=== PATIENT | male | born 1940 | race Caucasian/White ===

== ENCOUNTER → 2016-06-25 | Outpatient (CLI) | payer MEDICARE, BC ==
[2015-05-08 12:27] VITALS: BP 136/72
[~2016-06-25] MED LIST: AMLO10TA2 PO; BUSP10TA PO; DOXA4TAB3 PO; FLUT16SP NS; HYDR-2868 PO; IOHEXOL 240 MG/ML 50ML VIAL. PO ONE; IOHEXOL 300 MG/ML 75 ML VIAL IV ONE; LANS30CA PO; LORA0.5T PO; LORA10TA3 PO; LOSA50TA2 PO; MULT1TAB52 PO; OLME40TA PO; SIMV20TA3 PO; calcium PO
[2016-06-25 09:44] LABS: GFR 72.5
--- NOTE | 2016-06-25 12:00 | RAD ---
Indication prostate and renal malignancy. The history of surgical resection of the next hepatic mass off the inferior pole of the left kidney has been provided. Initially noncontrast images through the kidneys were performed. This was followed by portal venous phase, slightly delayed and 10 minute delayed images. The abdomen and pelvis were imaged on the slightly delayed images. On the other imaging sets only the abdomen was evaluated. In addition to the IV contrast oral contrast was administered. Note is made of a prior study 12/05/2014. The lung bases are unremarkable. There are some degenerative changes in the visualized lower thoracic and lumbar spine. This is most pronounced associated with the inferior endplate of L4 where there is some cystic degeneration. No additional bony finding is seen. Benign masses are noted associated with the liver similar to the previous exam. The gallbladder appears grossly normal and the spleen appears unremarkable. No pancreatic abnormality is seen. There is a cyst off the right kidney measuring 7 cm in greatest dimension similar to the previous exam. There occasional small cysts off the left kidney also similar. Some scarring involving the caudal aspect of the left kidney is noted. There is no evidence of tumor recurrence. The pancreas appears unremarkable. There is no significant adenopathy seen in the abdomen. In the pelvis a right hip prosthesis is noted. Acute finding is not seen. Postoperative changes are noted in the prostate bed. Evidence of metastatic disease is not seen IMPRESSION: No acute findings seen in the abdomen or pelvis. Bilateral renal cysts. No evidence of tumor recurrence or metastatic disease PQRS Compliance Statement: One or more of the following individualized dose reduction techniques were utilized for this examination: 1. Automated exposure control 2. Adjustment of the mA and/or kV according to patient size 3. Use of iterative reconstruction technique
--- NOTE | 2016-06-25 15:02 | RAD ---
Radionuclide bone scan, 06/25/2016: History: Prostate cancer and renal cancer Whole body imaging was performed following IV injection of 22 mCi of technetium 99m MDP. No previous bone scan is available at this time for comparison purposes. The following findings are delineated: 1. There is increased activity at both shoulders, sternoclavicular joints, knees, feet, hands and wrists compatible with arthritis. 2. Minimally increased activity in the lower lumbar spine is probably due to arthritis as noted on the recent CT study. 3. A right hip prosthesis is noted. 4. Activity of the radionuclide about the skeleton the major joints is otherwise unremarkable. 5. Normal activity is identified in both kidneys and the bladder. IMPRESSION: No bone scan evidence of osseous metastatic disease.
== END | disposition home or self-care (01) ==
LOC: NM 11:40
PROVIDERS: ATTEND Urology
DX: C61 Malignant neoplasm of prostate (principal); N28.1 Cyst of kidney, acquired
CPT/HCPCS: 36415; 74178; 78306; 82565; 84520; 96374; A9503; Q9967

== ENCOUNTER → 2017-05-20 | Outpatient (CLI) | payer MEDICARE, BC | END | disposition home or self-care (01) | LOC: ECHO 08:50 | DX: I08.1 Rheumatic disorders of both mitral and tricuspid valves (principal) | CPT/HCPCS: 93306 ==

== ENCOUNTER → 2018-04-20 | Outpatient (CLI) | payer MEDICARE, BC ==
[2016-10-21 16:28] VITALS: BP 151/68
[~2018-04-20] MED LIST changes: -AMLO10TA2 PO; +AMLO10TA8 PO; +AZEL23SP NS; +HYDR-2145 PO; -IOHEXOL 240 MG/ML 50ML VIAL. PO ONE; -IOHEXOL 300 MG/ML 75 ML VIAL IV ONE; +LOSA-73 PO; -LOSA50TA2 PO; -OLME40TA PO; +OLME40TA12 PO; +TRAM50TA PO
--- NOTE | 2018-04-20 16:07 | CARD ---
MR#: [id number] Date of Study: 04/20/2018 Ordering Physician: MELISSA REYES, Referring Physician: MELISSA REYES, Tech: Susanna Sevilla ESA APPROVED REPORT EXAM: Two-dimensional and M-mode echocardiogram with Doppler and color Doppler. Other Information Quality : AverageHR: 50bpm Rhythm : Bradycardia INDICATION Mitral Valve Disease 2D DIMENSIONS RVDd3.1 (2.9-3.5cm)Left Atrium(2D)5.1 (1.6-4.0cm) IVSd1.4 (0.7-1.1cm)Aortic Root(2D)2.9 (2.0-3.7cm) LVDd5.5 (3.9-5.9cm)LVOT Diameter2.2 (1.8-2.4cm) PWd1.0 (0.7-1.1cm)LVDs3.1 (2.5-4.0cm) FS (%) 43.4 %SV107.7 ml LVEF(%)74.1 (>50%) M-Mode DIMENSIONS Left Atrium(MM)5.09 (2.5-4.0cm)Aortic Root2.88 (2.2-3.7cm) Aortic Valve AoV Peak Prabhjot.232.2cm/sAoV VTI56.6cm AO Peak GR.21.6mmHgLVOT Peak Prabhjot.117.0cm/s AO Mean GR.13mmHgAVA (VMAX)1.85cm2 ROLY (VTI)1.90cm2 Mitral Valve MV E Juqtepck000.5cm/sMV DECEL HRTT869jk MV A Cdbprlsy99.9cm/sE/A Ratio1.4 MV A Yspzbkkd423iv Pulmonary Valve PV Peak Ivtyvuqr464.0cm/s Tricuspid Valve TR P. Uspkjcbx323ml/sRAP WYXOWVSY0juGh TR Peak Gr.45pqJqLIWC91esLg LEFT VENTRICLE The left ventricle is normal size. Proximal septal thickening is noted. The left ventricular systolic function is normal. The Ejection Fraction is 65%. There is normal LV segmental wall motion. Transmit ral Doppler flow pattern is Grade II-pseudonormal filling dynamics. RIGHT VENTRICLE The right ventricle is normal size. There is normal right ventricular wall thickness. The right ventr icular systolic function is normal. ATRIA The left atrium is moderately dilated. The right atrium is mildly dilated. The interatrial septum is intact with no evidence for an atrial septal defect or patent foramen ovale as noted on 2-D or Dopple r imaging. AORTIC VALVE The aortic valve is mildly calcified. The aortic valve is trileaflet. Doppler and Color Flow revealed no significant aortic regurgitation. There is no significant aortic valvular stenosis. MITRAL VALVE The mitral valve is thickened but opens well. There is no evidence of mitral valve prolapse. There is no mitral valve stenosis. Doppler and Color-flow revealed trace mitral regurgitation. TRICUSPID VALVE The tricuspid valve is normal in structure and function. Doppler and Color Flow revealed trace to mil d tricuspid regurgitation. There is mild pulmonary hypertension. The PA pressure was estimated at 38 mmHg. There is no tricuspid valve prolapse or vegetation. There is no tricuspid valve stenosis. PULMONIC VALVE The pulmonary valve is normal in structure and function. Doppler and Color Flow revealed trace pulmon ic valvular regurgitation. There is no pulmonic valvular stenosis. GREAT VESSELS The aortic root is normal in size. The ascending aorta is normal in size. The IVC is normal in size a nd collapses >50% with inspiration. PERICARDIAL EFFUSION There is no evidence of significant pericardial effusion. Critical Notification Critical Value: No <Conclusion> The left ventricular systolic function is normal. The Ejection Fraction is 65%. There is normal LV segmental wall motion. Transmitral Doppler flow pattern is Grade II-pseudonormal filling dynamics. The left atrium is moderately dilated. Trace mitral regurgitation. Trace to mild tricuspid regurgitation. The PA pressure was estimated at 38 mmHg. There is no evidence of significant pericardial effusion. Signed by : Renaldo De Leon, Electronically Approved : 04/20/2018 16:06:42
== END | disposition home or self-care (01) ==
LOC: ECHO 14:02
PROVIDERS: ATTEND Internal Medicine Cardiovascular Disease
DX: I25.10 Atherosclerotic heart disease of native coronary artery without angina pectoris (principal); I27.20 Pulmonary hypertension, unspecified; I42.2 Other hypertrophic cardiomyopathy
CPT/HCPCS: 93306

== ENCOUNTER → 2018-05-18 | Outpatient (CLI) | payer MEDICARE, BC ==
[2016-10-21 16:28] VITALS: BP 151/68
--- NOTE | 2018-05-18 13:07 | RAD ---
MR#: [id number] Date of Study: 05/18/2018 Ordering Physician: MELISSA REYES, Referring Physician: NICOLE ESCOBAR Tech: RT Mariana (R) (N) APPROVED REPORT Test Type: Exercise Stress Nurse/Tech: Doris Saavedra RN Test Indications: dyspnea Cardiac History: HTN Medications: See EMR Medical History: See EMR Resting ECG: Sinus bradycardia Resting Heart Rate: 44 bpm Resting Blood Pressure: 182/69mmHg Pretest Chest Pain: No chest pain Nurse/Tech Notes S1 S2. Lung sounds clear. Consent: The procedure was explained to the patient in lay terms. Informed consent was witnessed. Tang eout was entered into [employer]. History and Stress Test performed by MILDRED Cardenas Stress Symptoms Dyspnea POST EXERCISE Reason for Termination: Reached target heart rate Target HR: 119 Max HR: 120 bpm 101% of Maximum Predicted HR: 120 bpm Exercise duration: 8:05 min:sec, 3 Stage Exercise capacity: 10.0METs Max Blood Pressure: 204/61mmHg Blood Pressure response to exercise: Normal blood pressure response during stress. Heart Rate response to exercise: normal Chest Pain: No. Arrhythmia: Yes. Stage 1 bigeminy PVC's noted; trigeminy PVC's noted in Stage 3 ST Change: No. INTERPRETATION Stress EKG Conclusion: Baseline EKG showed sinus rhythm. Non diagnostic changes at peak stress. PVC' s and bigeminy without any other arrhythmias. Imaging Protocol IMAGE PROTOCOL: Rest Tc-99m/stress Tc-99m 1 day Rest: Stress: Viability: Radiopharm.Tc99m HigxaasatHv80a Sestamibi Dose10.2mCi 33.1mCi Duration 13min. 13min. Img Date 05/18/2018 05/18/2018 Inj-Img Rnrp88tbc. 60min. Rest Admin Site:IV - Right AntecubitalAdministrator:RT Mariana (R)(N) Stress Admin Site: IV - Right AntecubitalAdministrator: MILDRED Cardenas STRESS DATA End Diast. Vol.178.0mlLVEDV index BSA88.0ml End Syst. Vol.61.0mlLVESV index BSA30.0ml Myocardial Byly844.0gEject. Xvjylaja19.0% Stress Scores Regional WT0.00Summed WT0.00 Regional WM0.00Summed WM0.00 Study quality was good. Left Ventricular size was Normal at Rest and Stress. Lung uptake was . Left Ventricular ejection fraction is 66%. The rest and stress images show normal perfusion, normal contraction and thickening. LV Perf. Quant 17 Seg. SSS1.00 17 Seg. SRS2.00 17 Seg. SDS0.00 Stress Defect Extent (% LAD)2.50Rest Defect Extent (% LAD)16.30Rev. Defect Extent (% LAD)0.00 Stress Defect Extent (% LCX) 0.00Rest Defect Extent (% LCX)0.00Rev. Defect Extent (% LCX)0.00 Stress Defect Extent (% RCA)0.00Rest Defect Extent (% RCA)0.00Rev. Defect Extent (% RCA)0.00 Stress Defect Extent (% IRMA)0.90Rest Defect Extent (% IRMA)8.70Rev. Defect Extent (% IRMA)0.00 Conclusion 1. Treadmill exercise cardioisotope stress test did not show any evidence of ischemia or infarct. 2. Normal left ventricular systolic function with ejection fraction calculated at 66%. 3. Low risk for cardiac events. Signed by : Renaldo De Leno, Electronically Approved : 05/18/2018 13:06:51
== END | disposition home or self-care (01) ==
LOC: NM 08:51
PROVIDERS: ATTEND Internal Medicine Cardiovascular Disease
DX: R00.1 Bradycardia, unspecified (principal); I10 Essential (primary) hypertension
CPT/HCPCS: 78452; 93017; 96374; 96376; A9500

== ENCOUNTER → 2018-11-10 | Outpatient (CLI) | payer MEDICARE, BC ==
[2016-10-21 16:28] VITALS: BP 151/68
--- NOTE | 2018-11-11 12:55 | RAD ---
CT scan of the chest without contrast 11/10/2018 CLINICAL HISTORY: History of shortness of breath. Palpitations. TECHNIQUE: Unenhanced, contiguous, 5 mm axial sections were obtained through the chest and upper abdomen. One or more of the following individualized dose reduction techniques were utilized for this study: 1. Automated exposure control. 2. Adjustment of the mA and/or kV according to patient size. 3. Use of iterative reconstruction technique. FINDINGS: Comparison is made to patient's chest radiograph dated 10/20/2016. Low-attenuation lesions are seen involving the thyroid gland, left greater than right which measure 3 mm to 1.7 cm in size. These may represent colloid cysts. Atherosclerotic calcification of the thoracic aorta and its branches is noted. The thoracic aorta is tortuous but tapers normally. Scattered coronary artery calcifications are seen. The heart is mildly enlarged. Enlarged mediastinal lymph nodes are seen which measure 1 to 2 cm in size. Minimal dependent subsegmental atelectasis is seen involving both lungs. No area of consolidation is seen. No pneumothorax or pleural effusion is noted. No area of honeycombing or bronchiectasis is seen. A 9 mm calcified granuloma is seen involving the right lower lobe. Images through the upper abdomen demonstrate a 2.3 cm lipoma associated with the right hemidiaphragm/dome of the liver. A 3.5 cm rounded low-attenuation lesion is seen involving the right lower liver which likely represents a hepatic cyst. Atherosclerotic calcification of the abdominal aorta and its branches is noted. Minimal S-shaped curvature of the thoracolumbar spine is seen. Degenerative changes are seen involving the thoracic spine. A 2.7 cm hemangioma seen involving the T7 vertebral body. IMPRESSION: 1. Mediastinal lymphadenopathy of uncertain etiology. 2. No acute abnormality is seen. Electronically signed by: Tray Cash MD (11/11/2018 12:53 PM) [facility]
== END | disposition home or self-care (01) ==
LOC: CT 10:52
PROVIDERS: ATTEND Internal Medicine Critical Care Medicine
DX: J84.9 Interstitial pulmonary disease, unspecified (principal); R59.0 Localized enlarged lymph nodes; D17.5 Benign lipomatous neoplasm of intra-abdominal organs; I70.0 Atherosclerosis of aorta; D18.09 Hemangioma of other sites
CPT/HCPCS: 71250

== ENCOUNTER → 2019-01-23 | Outpatient (CLI) | payer MEDICARE, BC ==
[2016-10-21 16:28] VITALS: BP 151/68
[~2019-01-23] MED LIST changes: +SIMV20TA18 PO; -SIMV20TA3 PO
[2019-01-23 14:06] LABS: CALCIUM 8.8 mg/dL (8.5-10.1); CREATININE 1.3 mg/dL (0.7-1.3); GFR 53.1; POTASSIUM 4.1 mmol/L (3.5-5.1)
--- NOTE | 2019-01-23 14:14 | EKG ---
[facility] [address] [place] [address] Test Date: 2019-01-23 Test Time: 14:10:09 Pat Name: RANDAL SMALLWOOD Department: Room: Gender: M Top Screw: M[place] : 1940 Requested By: STAFF NON Order Number: [id number] Reading MD: Renaldo De Leon Measurements Intervals [place] Rate: 48 P: 45 FL: 222 QRS: 13 QRSD: 106 T: 42 QT: 470 QTc: 420 Interpretive Statements SINUS BRADYCARDIA PROLONGED FL INTERVAL ABNORMAL ECG Electronically Signed On 01-29-2019 15:07:23 DEVELOPER RELATIONS MANAGER by Renaldo De Leon
== END | disposition home or self-care (01) ==
LOC: LAB 13:29
DX: Z01.812 Encounter for preprocedural laboratory examination (principal); Z01.810 Encounter for preprocedural cardiovascular examination; R94.31 Abnormal electrocardiogram [ECG] [EKG]; I10 Essential (primary) hypertension
CPT/HCPCS: 36415; 80048; 93005

== ENCOUNTER → 2019-01-29 | Outpatient (CLI) | payer MEDICARE, BC ==
[2016-10-21 16:28] VITALS: BP 151/68
[~2019-01-29] MED LIST changes: +CONTRAST GIVEN. MC PRN; +IOHEXOL 300 MG/ML 100ML VIAL. IV ONE
--- NOTE | 2019-01-29 11:05 | RAD ---
CT CHEST W/CONTRAST Indication: Adenopathy Technique: Postcontrast CT imaging was performed of the chest, multiplanar reconstruction images submitted. One or more of the following individualized dose reduction techniques were utilized for this examination: 1. Automated exposure control 2. Adjustment of the mA and/or kV according to patient size 3. Use of iterative reconstruction technique. Comparison: November 10, 2018 Findings: There is persistent nonspecific mediastinal lymphadenopathy. A couple of right paratracheal nodes are slightly larger. For example node image 20 series 2 measures about 1.3 cm short axis dimension versus previously 1.2 cm. Right paratracheal node image 16 series 2 measures about 1.3 cm short axis dimension versus previously about 1.1 cm in similar measurement planes. No new nodes are identified. Thoracic aortic caliber is within normal limits, scattered plaque. There is coronary calcification. There is again very minimal pericardial fluid. There is no pleural fluid or pneumothorax. No new suspicious lung mass is identified. There is emphysema. There is again fat-containing right Bochdalek hernia. Kidneys are not fully evaluated, 2 foci of hypodensity of the left kidney with density characteristics of cysts, largest more inferiorly up to 2.6 cm. Lytic focus T7 vertebral body with associated trabecular thickening is most likely a hemangioma. There is again lipoma near the right dome of the liver. There is also hypodense lesion of the right lobe of liver with density characteristics of a cyst, up to about 3.8 cm in size. IMPRESSION: 1. There is persistent nonspecific mediastinal lymphadenopathy, a couple of right paratracheal nodes very slightly larger than previous November 2017 exam. 2. There is emphysema. 3. There is some coronary calcification. Electronically signed by: Quinten Bee MD (01/29/2019 11:02 AM) [id number]
== END | disposition home or self-care (01) ==
LOC: CT 08:36
PROVIDERS: ATTEND Internal Medicine Critical Care Medicine
DX: R59.0 Localized enlarged lymph nodes (principal); J43.9 Emphysema, unspecified; I25.10 Atherosclerotic heart disease of native coronary artery without angina pectoris; K76.89 Other specified diseases of liver
CPT/HCPCS: 71260; Q9967

== ENCOUNTER 2019-11-04 19:13 | Inpatient (IN) | payer MEDICARE, BC ==
[~2019-11-04] VITALS: Ht 175.3 cm; Wt 100.0 kg
[~2019-11-04 19:13] MED LIST changes: -CONTRAST GIVEN. MC PRN; -IOHEXOL 300 MG/ML 100ML VIAL. IV ONE; +MULT-445 PO; -MULT1TAB52 PO
[2019-11-04] MEDS ORDERED: ASPIRIN 325 MG TABLET PO ONE (19:45)
[2019-11-04 19:52] LABS: BILIRUBIN,URINE NEGATIVE (NEG); CLARITY,URINE CLEAR; COLOR,URINE YELLOW; NITRITE,URINE NEGATIVE (NEG); PROTEIN,URINE NEGATIVE (NEG-TRACE); UROBILINOGEN,URINE 0.2 mg/dL (0.2 mg/dL)
[2019-11-04 19:56] LABS: BASO # 0.1 x10^3/uL (0.0-0.2); BASO % 1 % (0-3); EOS # 0.5 x10^3/uL (0.0-0.7); EOS % 7 % (0-3); HEMATOCRIT 35.2 % (39.0-53.0); HEMOGLOBIN 12.1 g/dL (13.0-17.5); LYMPH # 2.1 x10^3/uL (1.0-4.8); LYMPH % 30 % (24-48); MEAN CORPUSCULAR HEMOGLOBIN 33 pg (25-35); MEAN CORPUSCULAR HGB CONC 34 g/dL (31-37); MEAN CORPUSCULAR VOLUME 96 fL (79-100); MONO # 0.6 x10^3/uL (0.0-1.1); MONO % 8 % (0-9); NEUT # 3.9 x10^3/uL (1.8-7.7); NEUT % 55 % (31-73); PLATELET COUNT 187 x10^3/uL (140-400); RED BLOOD COUNT 3.69 x10^6/uL (4.30-5.70); RED CELL DISTRIBUTION WIDTH 14.4 % (11.5-14.5); WHITE BLOOD COUNT 7.1 x10^3/uL (4.0-11.0)
[2019-11-04 19:57] LABS: BACTERIA,URINE 0 /HPF (0-FEW); RBC,URINE RARE /HPF (0-2); WBC,URINE 0 /HPF (0-4)
[2019-11-04 19:58] LABS: BARBITURATES NEG (NEG); BENZODIAZEPINES NEG (NEG); CANNABINOIDS NEG (NEG); COCAINE NEG (NEG); METHADONE NEG (NEG); OPIATES NEG (NEG); PHENCYCLIDINE NEG (NEG)
[2019-11-04 19:59] LABS: AMPHETAMINE/METHAMPHETAMINE NEG (NEG)
[2019-11-04] MEDS ORDERED: NITROGLYCERIN SUBLINGUAL 0.4 MG BOTTLE OF 25. SL PRN (20:00)
[2019-11-04 20:05] LABS: PROTHROMBIN TIME PATIENT 12.1 SEC (11.7-14.0)
[2019-11-04 20:08] LABS: CALCIUM 9.1 mg/dL (8.5-10.1); CREATININE 1.3 mg/dL (0.7-1.3); POTASSIUM 3.7 mmol/L (3.5-5.1)
--- NOTE | 2019-11-04 20:10 | PHYS DOC ---
Past Medical History Past Medical History: Anxiety, GERD, High Cholesterol, Hypertension, Kidney Stone, Other Additional Past Medical Histor: INTERMITTENT BRADYCARDIA (KRIS SAUCEDA RESEARCH KENNEL SUPERVISOR) Past Surgical History: Hip Replacement, Other Additional Past Surgical Histo: eye surgery, kidney stone removal with stent placement (KRIS SAUCEDA RESEARCH KENNEL SUPERVISOR) Smoking Status: Former Smoker Alcohol Use: None Drug Use: None (KRIS SAUCEDA RESEARCH KENNEL SUPERVISOR) General Adult EDM: Chief Complaint: SHORTNESS OF BREATH HPI: HPI: Patient is a 79 year old male who presents with chest tightness, shortness of air and tingling in the last 2 fingers of his left hand that started this afternoon. He states he no longer has the tingling in the hand. He states that he would not really call it pain but he rates the chest tightness at a 1 out of 10 scale. He states that he has been told in the past that he has a small bit of COPD but when he has had this shortness of breath in the past he thinks it is associated with his allergies. He states that he does have a bit of a runny nose. States he is not on any kind of blood thinners. Patient states that he d oes have bradycardia which is normal for him and he states he has skipped beats. Patient has a history of GERD, high cholesterol, hypertension, kidney stones, anxiety, bradycardia, hip replacement. 1+ bilateral lower extremity swelling. Patient denies abdominal pain, nausea, vomiting, diarrhea, dizziness, headache, vision changes, syncope, fever, cough, recent travel, around anyone else that been sick. (KRIS SAUCEDA RESEARCH KENNEL SUPERVISOR) Review of Systems: Review of Systems: Constitutional: Denies fever or chills. [] Eyes: Denies change in visual acuity. [] HENT: Runny nose. Denies nasal congestion or sore throat. [] Respiratory: Denies cough. + shortness of breath. [] Cardiovascular: chest pain or edema. [] GI: Denies abdominal pain, nausea, vomiting, bloody stools or diarrhea. [] : Denies dysuria. [] Musculoskeletal: Denies back pain or joint pain. [] Integument: Denies rash. [] Neurologic: Denies headache, focal weakness. Tingling in left hand sensory changes. [] Endocrine: Denies polyuria or polydipsia. [] Lymphatic: Denies swollen glands. [] Psychiatric: Denies depression or anxiety. [] (KRIS SAUCEDA APRN) Heart Score: HEART Score for Chest Pain: HEART Score for Chest Pain Response (Comments) Value History Moderately Suspicious 1 ECG Nonspecific Repolarizatio 1 Age > 65 2 Risk Factors >3 Risk Factors or Hx CAD 2 Troponin < Normal Limit 0 Total 6 Risk Factors: Risk Factors: DM, Current or recent (<one month) smoker, HTN, HLP, family history of CAD, obesity. Risk Scores: Score 0 - 3: 2.5% MACE over next 6 weeks - Discharge Home Score 4 - 6: 20.3% MACE over next 6 weeks - Admit for Clinical Observation Score 7 - 10: 72.7% MACE over next 6 weeks - Early Invasive Strategies (KRIS SAUCEDA APRN) Current Medications: Current Medications Medications (Trade) Dose Ordered Sig/Sabino Start Time Stop Time Status Last Admin Dose Admin Aspirin (Williams Aspirin) 325 mg 1X ONCE 11/04/19 19:45 11/04/19 19:46 DC Nitroglycerin (Nitrostat) 0.4 mg PRN Q5MIN PRN 11/04/19 20:00 (KRIS SAUCEDA APRN) Allergies: Allergies: Allergies Coded Allergies Type Severity Reaction Last Updated Verified Cephalosporins Allergy Intermediate rash 10/20/16 Yes Penicillins Allergy Intermediate Rash 10/20/16 Yes ibuprofen Allergy Intermediate rash 11/04/19 Yes tamsulosin Allergy Intermediate rash 10/20/16 Yes I S O L A T I O N *CONTACT* Allergy Unknown 10/21/16 Yes (KRIS SAUCEDA APRN) Physical Exam: PE: Constitutional: Well developed, well nourished, no acute distress, non-toxic appearance. [] HENT: Normocephalic, atraumatic, bilateral external ears normal, oropharynx moist, no oral exudates, nose normal. [] Eyes: PERRLA, EOMI, conjunctiva normal, no discharge. [] Neck: Normal range of motion, no tenderness, supple, no stridor. [] Cardiovascular:Heart rate itregular rhythm, no murmur [] Lungs & Thorax: Bilateral breath sounds clear to auscultation [] Abdomen: Bowel sounds normal, soft, no tenderness, no masses, no pulsatile masses. [] Skin: Warm, dry, no erythema, no rash. [] Back: No tenderness, no CVA tenderness. [] Extremities: No tenderness, no cyanosis, no clubbing, ROM intact, bilateral lower 2+ edema. [] Neurologic: Alert and oriented X 3, normal motor function, normal sensory function, no focal deficits noted. [] Psychologic: Affect normal, judgement normal, mood normal. [] (KRIS SAUCEDA APRN) Current Patient Data: Vital Signs: Vital Signs Date Time Temp Pulse Resp B/P (MAP) Pulse Ox O2 Delivery O2 Flow Rate FiO2 11/04/19 19:15 18 185/71 (109) Room Air (KRIS SAUCEDA APRN) EKG: EK and read as irregular rhythm with no STEMI (KRIS SAUCEDA APRN) Radiology/Procedures: Radiology/Procedures: [] Impression: [facility] [address] [place] [address] IMAGING REPORT Signed PATIENT: RANDAL SMALLWOOD ACCOUNT: [id number] : 1940 LOCATION: ER AGE: 79 SEX: M EXAM STATUS: REG ER ORD. PHYSICIAN: RKIS SAUCEDA APRN REASON: soa PROCEDURE: PORTABLE CHEST 1V Exam: Chest one view INDICATION: Short of air TECHNIQUE: Frontal view of the chest Comparisons: None FINDINGS: The cardiomediastinal silhouette and pulmonary vessels are within normal limits. The lung and pleural spaces are clear. IMPRESSION: No acute cardiopulmonary process. Electronically signed by: Rebecca Pham MD (11/04/2019 8:12 PM) [id number] DICTATED and SIGNED BY: REBECCA PHAM MD DATE: 11/04/192011 (KRIS SAUCEDA APRN) Course & Med Decision Making: Course & Med Decision Making Pertinent Labs and Imaging studies reviewed. (See chart for details) COVID-19 CRITERIA: The patient was evaluated during the global COVID-19 pandemic, and that diagnosis was suspected/considered upon their initial presentation. Their evaluation, treatment and testing was consistent with current guidelines for patients who present with complaints or symptoms that may be related to COVID-19. See HPI. Speaks in full clear sentences. Alert and oriented x4. Ambulatory with a steady gait. Dr Gallagher has seen this patient and examined him as well. Patient was given a aspirin and I have ordered Nitro to see if there is improvement in chest pressure, also to lower blood pressure. 2030: Patient refused Nitro and states " I dont need it and im not taking it". 2049: Chest x-ray shows no acute findings. BNP is slightly bumped at 2222. Troponin is normal. D-dimer is normal. Due to patient's history and his symptoms patient has been admitted for chest pain and to be seen by cardiology. Patient agrees to this. Patient states that he did want the nitro and never refused it. I have spoken to the nurses and they are going into the room to see if he is still running the nitro and also to go over his home meds. Patient is admitted to Dr. Lofton the hospitalist. [] (KRIS SAUCEDA APRN) Miguel Disclaimer: Miguel Disclaimer: This electronic medical record was generated, in whole or in part, using a voice recognition dictation system. (KRIS SAUCEDA APRN) COVID-19 Patient Risks: Age 65 or older: Yes Sign of co-morbidity: Yes Exp to person + for COVID: No Exp to PUI: No Travel from affected area: No Lower respiratory symptoms: Yes Fever: No Other: No (KRIS SAUCEDA APRN) PPE Use: Full PPE with N95 mask or PAPR: Yes (KRIS SAUCEDA APRN) Departure Departure Impression: Primary Impression: Chest pain Qualified Codes: R07.9 - Chest pain, unspecified Disposition: ADMITTED INPATIENT Admitting Physician: YANY (KRIS SAUCEDA APRN) Condition: STABLE Referrals: AILYN GAMA MD (PCP) Justicifation of Admission Dx: Justifications for Admission: Justification of Admission Dx: Yes Comments: chest pain (KRIS SAUCEDA APRN) Attending Signature Attending Signature I have reviewed the non-physician practitioner's documentation, personally taken the patient's history, performed an exam and agree with the physical findings, clinical impression, and management plan. (FELISHA GALLAGHER DOKRIS PUCKETT RESEARCH KENNEL SUPERVISOR Nov 04, 2019 20:10 FELISHA GALLAGHER DO Nov 04, 2019 21:34
[2019-11-04 20:14] LABS: ALBUMIN 3.5 g/dL (3.4-5.0); ALBUMIN/GLOBULIN RATIO 1.2 (1.0-1.7); TOTAL BILIRUBIN 0.3 mg/dL (0.2-1.0); TOTAL PROTEIN 6.5 g/dL (6.4-8.2)
--- NOTE | 2019-11-04 20:15 | RAD ---
Exam: Chest one view INDICATION: Short of air TECHNIQUE: Frontal view of the chest Comparisons: None FINDINGS: The cardiomediastinal silhouette and pulmonary vessels are within normal limits. The lung and pleural spaces are clear. IMPRESSION: No acute cardiopulmonary process. Electronically signed by: Rebecca Feliz MD (11/04/2019 8:12 PM) [id number]
[2019-11-04] MEDS ORDERED: ONDANSETRON PF 4 MG/2 ML VIAL. IV PRN (21:15)
[2019-11-04] MEDS ORDERED: fentaNYL PF VIAL 100 MCG/2 ML VIAL IV PRN (21:15)
[2019-11-04] MEDS ORDERED: ACETAMINOPHEN 325 MG TABLET. PO PRN (21:15)
[2019-11-04] MEDS ORDERED: busPIRone 10 MG TABLET. PO PRN (22:30)
[2019-11-05] MEDS ORDERED: SIMVASTATIN 10 MG TABLET PO SCH
[2019-11-05 03:00] VITALS: BP 147/61
[2019-11-05 07:00] VITALS: BP 163/40
[2019-11-05] MEDS ORDERED: DOXAZOSIN MESYLATE 4 MG TABLET. PO SCH (09:00)
--- NOTE | 2019-11-05 10:58 | PDOC2 ---
CARDIAC CONSULT DATE OF CONSULT Date of Consult DATE: 11/05/19 TIME: 10:50 REASON FOR CONSULT Reason for Consult: Chest Pain REFERRING PHYSICIAN Referring Physician: Nirali Brand APRN SOURCE Source: Chart review, Patient HISTORY OF PRESENT ILLNESS HISTORY OF PRESENT ILLNESS This is an 79 yo male who presented secondary to chest pain and shortness of breath. Patient reports not feeling well overall yesterday. [place] slightly short of air. Was anxious and concerned that he possibly could have COVID. Went outside in the afternoon to trip so bushes. Began having tightness in his central chest. No dizziness, diaphoresis, or nausea/vomiting. Went in and took his blood pressure. SBP was 204 so he decided to come to the ED for further evaluations and treatment. Is feeling much better today. CP has resolved. Is anxious to be discharged. PAST MEDICAL HISTORY Past Medical History Cardiovascular: HTN, Hyperlipidemia, Mobitz 2 type 2 AV block, orthostasis Pulmonary: COPD, ALF CENTRAL NERVOUS SYSTEM: Other (No pertinent history) GI: GERD Psych: Anxiety Musculoskeletal: Osteoarthritis Infectious disease: No pertinent hx ENT: Allergic Rhinitis Renal/: Prostate Ca. (with radiation), Other (nephrolithiasis) Endocrine: No pertinent hx Dermatology: Other (skin CA) PAST SURGICAL HISTORY Past Surgical History Past Surgical History Total hip replacement (right), Other (eye surgery and left tumor removal) FAMILY HISTORY Family History: Diabetes SOCIAL HISTORY Social History Smoke: No (quit) ALCOHOL: none Drugs: None Lives: with family CURRENT MEDICATIONS CURRENT MEDICATIONS Current Medications Medications (Trade) Dose Ordered Sig/Sabino Route PRN Reason Start Time Stop Time Status Last Admin Dose Admin Aspirin (Williams Aspirin) 325 mg 1X ONCE PO 11/04/19 19:45 11/04/19 19:46 DC 11/04/19 20:15 Buspirone HCl (Buspar) 10 mg PRN BID PRN PO ANXIETY 11/04/19 22:30 11/04/19 23:29 Doxazosin Mesylate (Cardura) 4 mg DAILY PO 11/05/19 09:00 11/05/19 09:38 Hydralazine HCl (Apresoline) 50 mg TID PO 11/05/19 00:00 11/05/19 09:38 Simvastatin (Zocor) 10 mg QHS PO 11/05/19 00:00 11/04/19 23:29 ALLERGIES ALLERGIES: Coded Allergies: Cephalosporins (Verified Allergy, Intermediate, rash, 10/20/16) Penicillins (Verified Allergy, Intermediate, Rash, 10/20/16) BETALACTAMS ibuprofen (Verified Allergy, Intermediate, rash, 11/04/19) Has taken aspirin before tamsulosin (Verified Allergy, Intermediate, rash, 10/20/16) I S O L A T I O N *CONTACT* (Verified Allergy, Unknown, 10/21/16) mrsa ROS Review of System 14 point ROS conducted with pertinent positives noted above in HPI PHYSICAL EXAM PHYSICAL EXAM General: Alert, Oriented X3, Cooperative, No acute distress HEENT: Atraumatic, Mucous membr. moist/pink Lungs: Clear to auscultation, Normal air movement Heart: Regular rate (SR/SB), Normal S1, Normal S2, Other (2/6 sytolic murmur to LLS border) Extremities: No cyanosis, No edema Skin: No breakdown, No significant lesion Neuro: Normal speech, Sensation intact Psych/Mental Status: Mental status NL, Mood NL MUSCULOSKELETAL: Osteoarthritic changes both hands VITALS/I&O VITALS/I&O: Vital Signs Date Time Temp Pulse Resp B/P (MAP) Pulse Ox O2 Delivery O2 Flow Rate FiO2 11/05/19 09:38 52 163/40 11/05/19 08:30 Room Air 11/05/19 07:00 97.4 18 97 97.4 I & O 11/04/19 11/04/19 11/05/19 15:00 23:00 07:00 Intake Total 200 ml Balance 200 ml LABS Lab: Laboratory Tests Test 11/04/19 19:25 11/04/19 19:48 11/05/19 01:38 Urine Collection Type Unknown Urine Color Yellow Urine Clarity Clear Urine pH 7.0 (<5.0-8.0) Urine Specific [place] <=1.005 (1.000-1.030) Urine Protein Negative mg/dL (NEG-TRACE) Urine Glucose (UA) Negative mg/dL (NEG) Urine Ketones (Stick) Negative mg/dL (NEG) Urine Blood Negative (NEG) Urine Nitrite Negative (NEG) Urine Bilirubin Negative (NEG) Urine Urobilinogen Dipstick 0.2 mg/dL (0.2 mg/dL) Urine Leukocyte Esterase Negative (NEG) Urine RBC Rare /HPF (0-2) Urine WBC 0 /HPF (0-4) Urine Squamous Epithelial Cells None /LPF Urine Bacteria 0 /HPF (0-FEW) Urine Opiates Screen Neg (NEG) Urine Methadone Screen Neg (NEG) Urine Barbiturates Neg (NEG) Urine Phencyclidine Screen Neg (NEG) Urine Amphetamine/Methamphetamine Neg (NEG) Urine Benzodiazepines Screen Neg (NEG) Urine Cocaine Screen Neg (NEG) Urine Cannabinoids Screen Neg (NEG) Urine Ethyl Alcohol Neg (NEG) White Blood Count 7.1 x10^3/uL (4.0-11.0) Red Blood Count 3.69 x10^6/uL (4.30-5.70) L Hemoglobin 12.1 g/dL (13.0-17.5) L Hematocrit 35.2 % (39.0-53.0) L Mean Corpuscular Volume 96 fL (79-100) Mean Corpuscular Hemoglobin 33 pg (25-35) Mean Corpuscular Hemoglobin Concent 34 g/dL (31-37) Red Cell Distribution Width 14.4 % (11.5-14.5) Platelet Count 187 x10^3/uL (140-400) Neutrophils (%) (Auto) 55 % (31-73) Lymphocytes (%) (Auto) 30 % (24-48) Monocytes (%) (Auto) 8 % (0-9) Eosinophils (%) (Auto) 7 % (0-3) H Basophils (%) (Auto) 1 % (0-3) Neutrophils # (Auto) 3.9 x10^3/uL (1.8-7.7) Lymphocytes # (Auto) 2.1 x10^3/uL (1.0-4.8) Monocytes # (Auto) 0.6 x10^3/uL (0.0-1.1) Eosinophils # (Auto) 0.5 x10^3/uL (0.0-0.7) Basophils # (Auto) 0.1 x10^3/uL (0.0-0.2) Prothrombin Time 12.1 SEC (11.7-14.0) Prothrombin Time INR 0.9 (0.8-1.1) D-Dimer (Lorenza) 0.50 ug/mlFEU (0.00-0.50) Sodium Level 142 mmol/L (136-145) Potassium Level 3.7 mmol/L (3.5-5.1) Chloride Level 107 mmol/L (98-107) Carbon Dioxide Level 28 mmol/L (21-32) Anion Gap 7 (6-14) Blood Urea Nitrogen 24 mg/dL (8-26) Creatinine 1.3 mg/dL (0.7-1.3) Estimated GFR (Cockcroft-Gault) 53.0 BUN/Creatinine Ratio 18 (6-20) Glucose Level 114 mg/dL (70-99) H Calcium Level 9.1 mg/dL (8.5-10.1) Total Bilirubin 0.3 mg/dL (0.2-1.0) Aspartate Amino Transferase (AST) 18 U/L (15-37) Alanine Aminotransferase (ALT) 18 U/L (16-63) Alkaline Phosphatase 70 U/L (46-116) Troponin I Quantitative 0.020 ng/mL (0.000-0.055) 0.040 ng/mL (0.000-0.055) LJ-Esc-T-Type Natriuretic Peptide 2222 pg/mL (0-449) H Total Protein 6.5 g/dL (6.4-8.2) Albumin 3.5 g/dL (3.4-5.0) Albumin/Globulin Ratio 1.2 (1.0-1.7) Lipase 161 U/L (73-393) Laboratory Tests 11/04/19 19:48 Laboratory Tests 11/04/19 19:48 ECHOCARDIOGRAM ECHOCARDIOGRAM <Conclusion> The left ventricular systolic function is normal. The Ejection Fraction is 65%. There is normal LV segmental wall motion. Transmitral Doppler flow pattern is Grade II-pseudonormal filling dynamics. The left atrium is moderately dilated. Trace mitral regurgitation. Trace to mild tricuspid regurgitation. The PA pressure was estimated at 38 mmHg. There is no evidence of significant pericardial effusion. DATE: 04/20/18 1606 STRESS TEST STRESS TEST Conclusion 1. Treadmill exercise cardioisotope stress test did not show any evidence of ischemia or infarct. 2. Normal left ventricular systolic function with ejection fraction calculated at 66%. 3. Low risk for cardiac events. DATE: 05/18/18 1306 ASSESSMENT/PLAN ASSESSMENT/PLAN 1. Chest pain in the setting of hypertensive urgency. AMI ruled out 2. Hypertensive urgency; home medications resumed. ? anxiety contributing 3. ALF; CPAP 4. Hx of orthostasis 5. Asymptomatic bradycardia. notable for SR/SB. hx of mobitz 2 type 2, although none noted on tele. Recommendations Lipids TSH ASA Echo to assess LV systolic function, will arrange on an outpatient basis Avoid AV rabia blocking agents Follow up in our office with Dr. Sebastian as scheduled Consider outpatient ischemic evaluation. ANTHONY FLOREZ APRN Nov 05, 2019 10:58
[2019-11-05 11:00] VITALS: BP 143/43
[2019-11-05] MEDS ORDERED: SIMV10TA15 PO (11:08)
[2019-11-05] MEDS ORDERED: HYDR-2869 PO (11:08)
[2019-11-05 12:05] LABS: CHOLESTEROL/HDL RATIO 3.6
[2019-11-05] MEDS ORDERED: traMADol 50 MG TABLET PO PRN (13:15)
[2019-11-05] MEDS ORDERED: amLODIPine BESYLATE 10 MG TABLET PO SCH (13:15)
--- NOTE | 2019-11-05 13:17 | PDOC1 ---
History and Physical Date of Admission Date of Admission DATE: 11/05/19 TIME: 13:05 Identification/Chief Complaint Chief Complaint Chest pain Source Source: Patient History of Present Illness History of Present Illness Mr Maldonado is an 79 year old male w/ PMHx Anxiety, GERD, High Cholesterol, Hypertension, nephrolithiasis, bradycardia (Mobitz type 2), COPD, ALF, allergic rhinitis, prostate cancer (on lupron), ex-smoker who presents with chest tightness, shortness of air and tingling in the last 2 fingers of his left hand that started 11/04/2019 in the afternoon. He states he no longer has the tingling in the hand. He states that he would not really call it pain but he rates the chest tightness at a 1 out of 10 scale. He states that he has been told in the past that he has a small bit of COPD but when he has had this shortness of breath in the past he thinks it is associated with his allergies as well as rhinitis. He was panicking about having COVID19, but does recall he mowed his entire lawn while the pollen count was high 2 days ago. Patient denies abdominal pain, nausea, vomiting, diarrhea, dizziness, headache, vision changes, syncope, fever, cough, recent travel, or recent sick contacts. Chest x-ray with no acute abnormalities. He underwent an echocardiogram and treadmill stress test in 2018 both which were negative for acute abnormalities. SBP 204. Troponin 0.020, BNP 2222 EKG read as irregular rhythm with no STEMI, but actually appears to be mobitz type 1, wenckebach on my interpretation. On telemetry he appears in NSR. Past Medical History Cardiovascular: HTN, Hyperlipidemia Pulmonary: COPD CENTRAL NERVOUS SYSTEM: Other GI: GERD Psych: Anxiety Musculoskeletal: Osteoarthritis Infectious disease: No pertinent hx Renal/: Prostate Ca., Other Endocrine: No pertinent hx Past Surgical History Past Surgical History: Total hip replacement, Other Family History Family History: Diabetes Social History Smoke: No ALCOHOL: none Drugs: None Current Problem List Problem List Problems Medical Problems: (1) Chest pain Status: Acute Current Medications Current Medications Current Medications Aspirin (Williams Aspirin) 325 mg 1X ONCE PO Last administered on 11/04/19at 20:15; Start 11/04/19 at 19:45; Stop 11/04/19 at 19:46; Status DC Nitroglycerin (Nitrostat) 0.4 mg PRN Q5MIN PRN SL CHEST PAIN; Start 11/04/19 at 20:00 Ondansetron HCl (Zofran) 4 mg PRN Q8HRS PRN IV NAUSEA/VOMITING 1ST CHOICE; Start 11/04/19 at 21:15; Stop 11/05/19 at 21:14 Fentanyl Citrate (Fentanyl 2ml Vial) 50 mcg PRN Q1HR PRN IV SEVERE PAIN 7-10; Start 11/04/19 at 21:15; Stop 11/05/19 at 21:14 Acetaminophen (Tylenol) 650 mg PRN Q4HRS PRN PO FEVER > 100.3'F; Start 11/04/19 at 21:15; Stop 11/05/19 at 21:14 Buspirone HCl (Buspar) 10 mg PRN BID PRN PO ANXIETY Last administered on 0at 23:29; Start 11/04/19 at 22:30 Doxazosin Mesylate (Cardura) 4 mg DAILY PO Last administered on 11/05/19at 09:38; Start 11/05/19 at 09:00 Hydralazine HCl (Apresoline) 50 mg TID PO Last administered on 11/05/19at 09:38; Start 11/05/19 at 00:00 Simvastatin (Zocor) 10 mg QHS PO Last administered on 11/04/19at 23:29; Start 11/05/19 at 00:00 Aspirin (Ecotrin) 81 mg DAILYWBKFT PO ; Start 11/06/19 at 08:00 Active Scripts Active Reported Hydralazine Hcl 50 Mg Tablet 1 Tab PO TID Simvastatin 10 Mg Tablet 1 Tab PO QHS Hydrochlorothiazide Tablet (Hydrochlorothiazide) 25 Mg Tablet 25 Mg PO DAILY Tramadol Hcl 50 Mg Tablet 1 Tab PO PRN Q6HRS Dymista Nasal [place] (Azelastine/Fluticasone) 23 Gm [place].pump 1 [place] NS BID Amlodipine Besylate 10 Mg Tablet 10 Mg PO DAILY Doxazosin Mesylate 4 Mg Tablet 1 Tab PO BID Benicar (Olmesartan Medoxomil) 40 Mg Tablet 1 Tab PO DAILY Lansoprazole 30 Mg Capsule.dr 30 Mg PO DAILY [calcium] 600 Mg PO DAILY Loratadine 10 Mg Tablet 1 Tab PO DAILY Fluticasone Propionate Nasal [place] (Fluticasone Propionate) 16 Gm [place].susp 2 [place] NS DAILY Multivitamins (Multivitamin) 1 Each Tablet 1 Tab PO DAILY Lorazepam 0.5 Mg Tablet 0.5 Mg PO HS Buspirone Hcl 10 Mg Tablet 2 Tab PO BID Allergies Allergies: Coded Allergies: Cephalosporins (Verified Allergy, Intermediate, rash, 10/20/16) Penicillins (Verified Allergy, Intermediate, Rash, 10/20/16) BETALACTAMS ibuprofen (Verified Allergy, Intermediate, rash, 11/04/19) Has taken aspirin before tamsulosin (Verified Allergy, Intermediate, rash, 10/20/16) I S O L A T I O N *CONTACT* (Verified Allergy, Unknown, 10/21/16) mrsa ROS General: YES: Fatigue, Malaise; No: Chills, Night Sweats, Appetite, Other PSYCHOLOGICAL ROS: YES: Anxiety; No: Behavioral Disorder, Concentration difficultie, Decreased libido, Depression, Disorientation, Hallucinations, Hostility, Irritablity, Memory difficulties, Mood Swings, Obsessive thoughts, Physical abuse, Sexual abuse, Sleep disturbances, Suicidal ideation, Other Eyes: Yes Itchy Eyes; No Blurry vision, No Decreased vision, No Double vision, No Dry eyes, No Excessive tearing, No Eye Pain, No Loss of vision, No Photophobia, No Scotomata, No Uses contacts, No Uses glasses, No Other HEENT: YES: Nasal congestion, Nasal discharge, Sinus pain, Sneezing; No: Heacaches, Visual Changes, Hearing change, Oral lesions, Sore Throat, Epistaxis, Snoring, Tinnitus, Vertigo, Vocal changes, Other ALLERGY AND IMMUNOLOGY: YES: Itchy/Watery Eyes, Nasal Congestion, Post Nasal Drip, Seasonal Allergies; No: Hives, Insect Bite Sensitivity, Other Hematological and Lymphatic: No: Bleeding Problems, Blood Clots, Blood Transfusions, Brusing, Night Sweats, Pallor, Swollen Lymph Nodes, Other ENDOCRINE: No: Breast Changes, Galactorrhea, Hair Pattern Changes, Hot Flashes, Malaise/lethargy, Mood Swings, Palpitations, Polydipsia/polyuria, Skin Changes, Temperature Intolerance, Unexpected Weight Changes, Other Breast: No New/Changing Breast Lumps, No Nipple changes, No Nipple discharge, No Other Respiratory: YES: Shortness of breath; No: Cough, Hemoptysis, Orthopnea, Pleuritic Pain, SOB with excertion, Sputum Changes, Stridor, Tachypnea, Wheezing, Other Cardiovascular: No Chest Pain, No Palpitations, No Orthopnea, No Paroxysmal Noc. Dyspnea, No Edema, No Lt Headedness, No Other Gastrointestinal: No Nausea, No Vomiting, No Abdominal Pain, No Diarrhea, No Constipation, No Melena, No Hematochezia, No Other Genitourinary: No Dysuria, No Frequency, No Incontinence, No Hematuria, No Retention, No Discharge, No Urgency, No Pain, No Flank Pain, No Other, No , No , No , No , No , No , No Musculoskeletal: No Gait Disturbance, No Joint Pain, No Joint Stiffness, No Joint Swelling, No Muscle Pain, No Muscular Weakness, No Pain In:, No Swelling In:, No Other Neurological: No Behavorial Changes, No Bowel/Bladder ControlChng, No Confusion, No Dizziness, No Gait Disturbance, No Headaches, No Impaired Coord/balance, No Memory Loss, No Numbness/Tingling, No Seizures, No Speech Problems, No Tremors, No Visual Changes, No Weakness, No Other Skin: No Dry Skin, No Eczema, No Hair Changes, No Lumps, No Mole Changes, No Mottling, No Nail Changes, No Pruritus, No Rash, No Skin Lesion Changes, No Other, No Acne Physical Exam General: Alert, Oriented X3, Cooperative, No acute distress HEENT: Atraumatic, PERRLA, EOMI, Mucous membr. moist/pink Lungs: Clear to auscultation, Normal air movement Heart: S1S2, RRR, no thrills, no rubs Abdomen: Normal bowel sounds, Soft, No tenderness, No hepatosplenomegaly, No masses Rectal Exam: not examined Extremities: No clubbing, No cyanosis, No edema, Normal pulses, No tenderness/swelling Skin: No rashes, No breakdown, No significant lesion Neuro: Normal gait, Normal speech, Strength at 5/5 X4 ext, Normal tone, Sensation intact, Cranial nerves 3-12 NL, Reflexes 2+ Psych/Mental Status: Mental status NL, Mood NL Vitals Vitals Vital Signs Date Time Temp Pulse Resp B/P (MAP) Pulse Ox O2 Delivery O2 Flow Rate FiO2 11/05/19 09:38 52 163/40 11/05/19 08:30 Room Air 8/31/20 07:00 97.4 18 97 97.4 Labs Labs Laboratory Tests Test 11/04/19 19:25 11/04/19 19:48 11/05/19 01:38 11/05/19 10:06 Urine Collection Type Unknown Urine Color Yellow Urine Clarity Clear Urine pH 7.0 (<5.0-8.0) Urine Specific [place] <=1.005 (1.000-1.030) Urine Protein Negative mg/dL (NEG-TRACE) Urine Glucose (UA) Negative mg/dL (NEG) Urine Ketones (Stick) Negative mg/dL (NEG) Urine Blood Negative (NEG) Urine Nitrite Negative (NEG) Urine Bilirubin Negative (NEG) Urine Urobilinogen Dipstick 0.2 mg/dL (0.2 mg/dL) Urine Leukocyte Esterase Negative (NEG) Urine RBC Rare /HPF (0-2) Urine WBC 0 /HPF (0-4) Urine Squamous Epithelial Cells None /LPF Urine Bacteria 0 /HPF (0-FEW) Urine Opiates Screen Neg (NEG) Urine Methadone Screen Neg (NEG) Urine Barbiturates Neg (NEG) Urine Phencyclidine Screen Neg (NEG) Urine Amphetamine/Methamphetamine Neg (NEG) Urine Benzodiazepines Screen Neg (NEG) Urine Cocaine Screen Neg (NEG) Urine Cannabinoids Screen Neg (NEG) Urine Ethyl Alcohol Neg (NEG) White Blood Count 7.1 x10^3/uL (4.0-11.0) Red Blood Count 3.69 x10^6/uL (4.30-5.70) Hemoglobin 12.1 g/dL (13.0-17.5) Hematocrit 35.2 % (39.0-53.0) Mean Corpuscular Volume 96 fL (79-100) Mean Corpuscular Hemoglobin 33 pg (25-35) Mean Corpuscular Hemoglobin Concent 34 g/dL (31-37) Red Cell Distribution Width 14.4 % (11.5-14.5) Platelet Count 187 x10^3/uL (140-400) Neutrophils (%) (Auto) 55 % (31-73) Lymphocytes (%) (Auto) 30 % (24-48) Monocytes (%) (Auto) 8 % (0-9) Eosinophils (%) (Auto) 7 % (0-3) Basophils (%) (Auto) 1 % (0-3) Neutrophils # (Auto) 3.9 x10^3/uL (1.8-7.7) Lymphocytes # (Auto) 2.1 x10^3/uL (1.0-4.8) Monocytes # (Auto) 0.6 x10^3/uL (0.0-1.1) Eosinophils # (Auto) 0.5 x10^3/uL (0.0-0.7) Basophils # (Auto) 0.1 x10^3/uL (0.0-0.2) Prothrombin Time 12.1 SEC (11.7-14.0) Prothromb Time International Ratio 0.9 (0.8-1.1) D-Dimer (Lorenza) 0.50 ug/mlFEU (0.00-0.50) Sodium Level 142 mmol/L (136-145) Potassium Level 3.7 mmol/L (3.5-5.1) Chloride Level 107 mmol/L (98-107) Carbon Dioxide Level 28 mmol/L (21-32) Anion Gap 7 (6-14) Blood Urea Nitrogen 24 mg/dL (8-26) Creatinine 1.3 mg/dL (0.7-1.3) Estimated GFR (Cockcroft-Gault) 53.0 BUN/Creatinine Ratio 18 (6-20) Glucose Level 114 mg/dL (70-99) Calcium Level 9.1 mg/dL (8.5-10.1) Total Bilirubin 0.3 mg/dL (0.2-1.0) Aspartate Amino Transf (AST/SGOT) 18 U/L (15-37) Alanine Aminotransferase (ALT/SGPT) 18 U/L (16-63) Alkaline Phosphatase 70 U/L (46-116) Troponin I Quantitative 0.020 ng/mL (0.000-0.055) 0.040 ng/mL (0.000-0.055) DP-Sfz-T-Type Natriuretic Peptide 2222 pg/mL (0-449) Total Protein 6.5 g/dL (6.4-8.2) Albumin 3.5 g/dL (3.4-5.0) Albumin/Globulin Ratio 1.2 (1.0-1.7) Lipase 161 U/L (73-393) Thyroid Stimulating Hormone (TSH) 3.937 uIU/mL (0.358-3.74) Test 11/05/19 10:50 Troponin I Quantitative 0.020 ng/mL (0.000-0.055) Triglycerides Level 80 mg/dL (0-150) Cholesterol Level 167 mg/dL (0-200) LDL Cholesterol, Calculated 105 mg/dL (0-100) VLDL Cholesterol, Calculated 16 mg/dL (0-40) Non-HDL Cholesterol Calculated 121 mg/dL (0-129) HDL Cholesterol 46 mg/dL (40-60) Cholesterol/HDL Ratio 3.6 Laboratory Tests Test 11/04/19 19:25 11/04/19 19:48 11/05/19 01:38 11/05/19 10:06 Urine Collection Type Unknown Urine Color Yellow Urine Clarity Clear Urine pH 7.0 (<5.0-8.0) Urine Specific [place] <=1.005 (1.000-1.030) Urine Protein Negative mg/dL (NEG-TRACE) Urine Glucose (UA) Negative mg/dL (NEG) Urine Ketones (Stick) Negative mg/dL (NEG) Urine Blood Negative (NEG) Urine Nitrite Negative (NEG) Urine Bilirubin Negative (NEG) Urine Urobilinogen Dipstick 0.2 mg/dL (0.2 mg/dL) Urine Leukocyte Esterase Negative (NEG) Urine RBC Rare /HPF (0-2) Urine WBC 0 /HPF (0-4) Urine Squamous Epithelial Cells None /LPF Urine Bacteria 0 /HPF (0-FEW) Urine Opiates Screen Neg (NEG) Urine Methadone Screen Neg (NEG) Urine Barbiturates Neg (NEG) Urine Phencyclidine Screen Neg (NEG) Urine Amphetamine/Methamphetamine Neg (NEG) Urine Benzodiazepines Screen Neg (NEG) Urine Cocaine Screen Neg (NEG) Urine Cannabinoids Screen Neg (NEG) Urine Ethyl Alcohol Neg (NEG) White Blood Count 7.1 x10^3/uL (4.0-11.0) Red Blood Count 3.69 x10^6/uL (4.30-5.70) Hemoglobin 12.1 g/dL (13.0-17.5) Hematocrit 35.2 % (39.0-53.0) Mean Corpuscular Volume 96 fL (79-100) Mean Corpuscular Hemoglobin 33 pg (25-35) Mean Corpuscular Hemoglobin Concent 34 g/dL (31-37) Red Cell Distribution Width 14.4 % (11.5-14.5) Platelet Count 187 x10^3/uL (140-400) Neutrophils (%) (Auto) 55 % (31-73) Lymphocytes (%) (Auto) 30 % (24-48) Monocytes (%) (Auto) 8 % (0-9) Eosinophils (%) (Auto) 7 % (0-3) Basophils (%) (Auto) 1 % (0-3) Neutrophils # (Auto) 3.9 x10^3/uL (1.8-7.7) Lymphocytes # (Auto) 2.1 x10^3/uL (1.0-4.8) Monocytes # (Auto) 0.6 x10^3/uL (0.0-1.1) Eosinophils # (Auto) 0.5 x10^3/uL (0.0-0.7) Basophils # (Auto) 0.1 x10^3/uL (0.0-0.2) Prothrombin Time 12.1 SEC (11.7-14.0) Prothromb Time International Ratio 0.9 (0.8-1.1) D-Dimer (Lorenza) 0.50 ug/mlFEU (0.00-0.50) Sodium Level 142 mmol/L (136-145) Potassium Level 3.7 mmol/L (3.5-5.1) Chloride Level 107 mmol/L (98-107) Carbon Dioxide Level 28 mmol/L (21-32) Anion Gap 7 (6-14) Blood Urea Nitrogen 24 mg/dL (8-26) Creatinine 1.3 mg/dL (0.7-1.3) Estimated GFR (Cockcroft-Gault) 53.0 BUN/Creatinine Ratio 18 (6-20) Glucose Level 114 mg/dL (70-99) Calcium Level 9.1 mg/dL (8.5-10.1) Total Bilirubin 0.3 mg/dL (0.2-1.0) Aspartate Amino Transf (AST/SGOT) 18 U/L (15-37) Alanine Aminotransferase (ALT/SGPT) 18 U/L (16-63) Alkaline Phosphatase 70 U/L (46-116) Troponin I Quantitative 0.020 ng/mL (0.000-0.055) 0.040 ng/mL (0.000-0.055) EA-Cko-W-Type Natriuretic Peptide 2222 pg/mL (0-449) Total Protein 6.5 g/dL (6.4-8.2) Albumin 3.5 g/dL (3.4-5.0) Albumin/Globulin Ratio 1.2 (1.0-1.7) Lipase 161 U/L (73-393) Thyroid Stimulating Hormone (TSH) 3.937 uIU/mL (0.358-3.74) Test 11/05/19 10:50 Troponin I Quantitative 0.020 ng/mL (0.000-0.055) Triglycerides Level 80 mg/dL (0-150) Cholesterol Level 167 mg/dL (0-200) LDL Cholesterol, Calculated 105 mg/dL (0-100) VLDL Cholesterol, Calculated 16 mg/dL (0-40) Non-HDL Cholesterol Calculated 121 mg/dL (0-129) HDL Cholesterol 46 mg/dL (40-60) Cholesterol/HDL Ratio 3.6 VTE Prophylaxis Ordered VTE Prophylaxis Devices: No VTE Pharmacological Prophylaxi: Yes Assessment/Plan Assessment/Plan A/P: Chest pain - likely 2/2 HTN urgency combined with allergic rhinitis and anxiety, will trend out troponins Shortness of breath - likely related to allergic rhinitis and anxiety, COVID 19 test pending Elevated troponin - likely demand ischemia type II from uncontrolled HTN Hypertensive urgency - improved on home medications Allergic rhinitis - seems to be contributing to his shortness of breath, cont astelin, flonase, add singulair ALF; CPAP [place] - NSR on telemetry FEN - Cardiac diet PPX - lovenox FULL CODE Dispo - inpatient Justifications for Admission Other Justification VALENTIN ORTIZ MD Nov 05, 2019 13:17
[2019-11-05 13:37] LABS: CALCIUM 9.4 mg/dL (8.5-10.1); CREATININE 1.2 mg/dL (0.7-1.3); GFR 58.1
[2019-11-05 15:00] VITALS: BP 153/51
[2019-11-05] MEDS ORDERED: MONT10TA49 PO (16:40)
--- NOTE | 2019-11-05 17:01 | EKG ---
[facility] [address] [place] [address] Test Date: 2019-11-04 Test Time: 19:28:42 Pat Name: RANDAL SMALLWOOD Department: Room: Gender: M [employer] In[employer]: : 1940 Requested By: KRIS SAUCEDA Order Number: [id number] Reading MD: Measurements Intervals Ada Rate: 55 P: SC: QRS: 6 QRSD: 106 T: 30 QT: 430 QTc: 413 Interpretive Statements IRREGULAR RHYTHM, NO P-WAVE FOUND OTHERWISE NORMAL ECG RI6.02 No previous ECG available for comparison
--- NOTE | 2019-11-05 17:42 | NUR ---
SW following. Reviewed chart and spoke with RN. Pt from home. Pt on IV pain medication. Pt on room air. Pt COVID pending. SW following.
--- NOTE | 2019-11-05 17:48 | NUR ---
Pt left unit at 1745 by ambulation via private vehicle. Pt's IV removed without complications. Discharge paperwork, follow-up, and COVID instructions discussed with pt. Pt verbalized understanding with no additional questions.
[2019-11-05] MEDS ORDERED: LORazepam 0.5 MG TABLET PO SCH (21:00)
[2019-11-05] MEDS ORDERED: AZELASTINE NASAL SPRAY 30ML BOTTLE. NS SCH (21:00)
[2019-11-06] MEDS ORDERED: PANTOPRAZOLE 40 MG TABLET.DR. PO SCH (07:30)
[2019-11-06] MEDS ORDERED: ASPIRIN ENTERIC COATED 81 MG TABLET.DR. PO SCH (08:00)
[2019-11-06] MEDS ORDERED: CALCIUM CARBONATE 500 MG TABLET PO SCH (09:00)
[2019-11-06] MEDS ORDERED: FLUTICASONE 50MCG/NASAL SPRAY 16GM BOTTLE. NS SCH (09:00)
[2019-11-06] MEDS ORDERED: LOSARTAN POTASSIUM 50 MG TABLET. PO SCH (09:00)
[2019-11-06] MEDS ORDERED: MULTIVITAMIN with MINERAL TABLET. PO SCH (09:00)
[2019-11-06] MEDS ORDERED: CETIRIZINE HCL 10 MG TABLET. PO SCH (09:00)
[2019-11-06] MEDS ORDERED: hydroCHLOROthiazide 25 MG TABLET PO SCH (09:00)
--- NOTE | 2019-11-06 13:51 | NUR ---
IP: Informed pt of negative COVID test. Pt verbalized understanding.
--- NOTE | 2019-11-06 22:02 | PDOC3 ---
Discharge Summary Visit Information Date of Admission: Nov 04, 2019 Date of Discharge: Nov 05, 2019 Admitting Diagnosis: Chest pain Final Diagnosis Problems Medical Problems: (1) Chest pain Status: Acute Brief Hospital Course Allergies Allergies Coded Allergies Type Severity Reaction Last Updated Verified Cephalosporins Allergy Intermediate rash 10/20/16 Yes Penicillins Allergy Intermediate Rash 10/20/16 Yes ibuprofen Allergy Intermediate rash 11/04/19 Yes tamsulosin Allergy Intermediate rash 10/20/16 Yes I S O L A T I O N *CONTACT* Allergy Unknown 10/21/16 Yes Vital Signs Vital Signs Date Time Temp Pulse Resp B/P (MAP) Pulse Ox O2 Delivery O2 Flow Rate FiO2 11/05/19 15:00 98.1 54 18 153/51 (85) 96 Room Air 98.1 Lab Results Laboratory Tests Test 11/05/19 01:38 11/05/19 10:06 11/05/19 10:50 Troponin I Quantitative 0.040 ng/mL (0.000-0.055) 0.020 ng/mL (0.000-0.055) Thyroid Stimulating Hormone (TSH) 3.937 uIU/mL (0.358-3.74) Sodium Level 142 mmol/L (136-145) Potassium Level 4.0 mmol/L (3.5-5.1) Chloride Level 107 mmol/L (98-107) Carbon Dioxide Level 29 mmol/L (21-32) Anion Gap 6 (6-14) Blood Urea Nitrogen 21 mg/dL (8-26) Creatinine 1.2 mg/dL (0.7-1.3) Estimated GFR (Cockcroft-Gault) 58.1 Glucose Level 114 mg/dL (70-99) Calcium Level 9.4 mg/dL (8.5-10.1) Triglycerides Level 80 mg/dL (0-150) Cholesterol Level 167 mg/dL (0-200) LDL Cholesterol, Calculated 105 mg/dL (0-100) VLDL Cholesterol, Calculated 16 mg/dL (0-40) Non-HDL Cholesterol Calculated 121 mg/dL (0-129) HDL Cholesterol 46 mg/dL (40-60) Cholesterol/HDL Ratio 3.6 Brief Hospital Course Mr Maldonado is an 79 year old male w/ PMHx Anxiety, GERD, High Cholesterol, Hypertension, nephrolithiasis, bradycardia (Mobitz type 2), COPD, ALF, allergic rhinitis, prostate cancer (on lupron), ex-smoker who presents with chest tightness, shortness of air and tingling in the last 2 fingers of his left hand that started 11/04/2019 in the afternoon. He states he no longer has the tingling in the hand. He states that he would not really call it pain but he rates the chest tightness at a 1 out of 10 scale. He states that he has been told in the past that he has a small bit of COPD but when he has had this shortness of breath in the past he thinks it is associated with his allergies as well as rhinitis. He was panicking about having COVID19, but does recall he mowed his entire lawn while the pollen count was high 2 days ago. Patient denies abdominal pain, nausea, vomiting, diarrhea, dizziness, headache, vision changes, syncope, fever, cough, recent travel, or recent sick contacts. Chest x-ray with no acute abnormalities. He underwent an echocardiogram and treadmill stress test in 2018 both which were negative for acute abnormalities. SBP 204. Troponin 0.020, BNP 2222 EKG read as irregular rhythm with no STEMI, but actually appears to be mobitz type 1, abiad on my interpretation. On telemetry he appears in NSR. Troponin peaked at 0.040 and came down to 0.020, Improved with home BP meds and seasonal allergy treatment,. Given new script for singulair for allergy season. Feeling much better today. CP has resolved. Is anxious to be discharged. COVID 19 negative. Problem list: Chest pain - likely 2/2 HTN urgency combined with allergic rhinitis and anxiety, will trend out troponins Shortness of breath - likely related to allergic rhinitis and anxiety, COVID 19 test pending Elevated troponin - likely demand ischemia type II from uncontrolled HTN Hypertensive urgency - improved on home medications Allergic rhinitis - seems to be contributing to his shortness of breath, cont astelin, flonase, add singulair ALF; CPAP Eusebiakecarlitos - NSR on telemetry Consults: Cardiology Greater than 135 minutes spent on same day admit and d/c Discharge Information Condition at Discharge: Improved Follow Up: Weeks (1) Disposition/Orders: D/C to Home Scheduled Amlodipine Besylate (Amlodipine Besylate) 10 Mg Tablet, 10 MG PO DAILY, (Reported) Entered as Reported by: Charanjit Dutton on 10/20/161952 Last Action: Continued on 11/05/191305 by VALENTIN ORTIZ MD Azelastine/Fluticasone (Dymista Nasal [place]) 23 Gm [place].pump, 1 SPRAY NS BID, #23 Ref 6 (Reported) Entered as Reported by: Charanjit Dutton on 10/20/161952 Last Action: Converted on 11/05/191305 by VALENTIN ORTIZ MD Buspirone Hcl (Buspirone Hcl) 10 Mg Tablet, 2 TAB PO BID, #60 Ref 1 (Reported) Entered as Reported by: MICHEAL BRITO on 11/29/1311 Last Action: Reviewed on 11/05/191107 by BRITANY GUEVARA Doxazosin Mesylate (Doxazosin Mesylate) 4 Mg Tablet, 1 TAB PO BID for urinary retention, #30 Ref 5 (Reported) Entered as Reported by: Charanjit Dutton on 10/20/161952 Last Action: Reviewed on 11/05/191107 by BRITANY GUEVARA Fluticasone Propionate (Fluticasone Propionate Nasal [place]) 16 Gm [place].susp, 2 SPRAY NS DAILY, #1 Ref 11 (Reported) Entered as Reported by: MICHEAL BRITO on 11/29/1311 Last Action: Continued on 11/05/191305 by VALENTIN ORTIZ MD Hydralazine Hcl (Hydralazine Hcl) 50 Mg Tablet, 1 TAB PO TID for HTN, #90 Ref 5 (Reported) Entered as Reported by: BRITANY GUEVARA on 11/05/191107 Last Action: New Order on 11/05/191107 by BRITANY GUEVARA Hydrochlorothiazide (Hydrochlorothiazide Tablet ) 25 Mg Tablet, 25 MG PO DAILY for DIURETIC, Ref 0 (Reported) Entered as Reported by: Charanjit Dutton on 10/20/161952 Last Action: Continued on 11/05/191305 by VALENTIN ORTIZ MD Lansoprazole (Lansoprazole) 30 Mg Capsule.dr, 30 MG PO DAILY, (Reported) Entered as Reported by: JASVIR LINARES on 05/09/141119 Last Action: Converted on 11/05/191305 by VALENTIN ORTIZ MD Loratadine (Loratadine) 10 Mg Tablet, 1 TAB PO DAILY, #30 Ref 5 (Reported) Entered as Reported by: MICHEAL BRITO on 11/29/1311 Last Action: Converted on 11/05/191305 by VALENTIN ORTIZ MD Lorazepam (Lorazepam) 0.5 Mg Tablet, 0.5 MG PO HS, (Reported) Entered as Reported by: MICHEAL BRITO on 11/29/1311 Last Action: Continued on 11/05/191305 by VALENTIN ORTIZ MD Montelukast Sodium (Montelukast Sodium Tablet ) 10 Mg Tablet, 10 MG PO HS for FOR ASTHMA for 30 Days, #30 Ref 2 Prescribed by: VALENTIN ORTIZ MD on 11/05/19 1640 Multivitamin (Multivitamins) 1 Each Tablet, 1 TAB PO DAILY, #90 Ref 3 (Reported) Entered as Reported by: MICHEAL BRITO on 11/29/1311 Last Action: Converted on 11/05/191305 by VALENTIN ORTIZ MD Olmesartan Medoxomil (Benicar) 40 Mg Tablet, 1 TAB PO DAILY, #30 Ref 5 (Reported) Entered as Reported by: SHIREEN ENCISO on 05/08/15 1146 Last Action: Converted on 11/05/191305 by VALENTIN ORTIZ MD Simvastatin (Simvastatin) 10 Mg Tablet, 1 TAB PO QHS for HLD, #30 Ref 5 (Report ed) Entered as Reported by: BRITANY GUEVARA on 11/05/191107 Last Action: New Order on 11/05/191107 by BRITANY GUEVARA Tramadol Hcl (Tramadol Hcl) 50 Mg Tablet, 1 TAB PO PRN Q6HRS, #30 (Reported) Entered as Reported by: Charanjit Dutton on 10/20/161952 Last Action: Continued on 11/05/191305 by VALENTIN ORTIZ MD [calcium] , 600 MG PO DAILY, (Reported) Entered as Reported by: MICHEAL BRITO on 11/29/1311 Last Action: Converted on 11/05/191305 by VALENTIN ORTIZ MD Justicifation of Admission Dx: Justifications for Admission: Justification of Admission Dx: Yes VALENTIN ORTIZ MD Nov 06, 2019 22:02
== END 2019-11-05 17:51 | disposition home or self-care (01) | DRG 305 ==
LOC: ER 19:13 → 6 SOUTH 21:56
PROVIDERS: ADMIT Internal Medicine; ATTEND Internal Medicine
DX: I16.0 Hypertensive urgency (principal); I24.8 Other forms of acute ischemic heart disease; M19.90 Unspecified osteoarthritis, unspecified site; K21.9 Gastro-esophageal reflux disease without esophagitis; F41.9 Anxiety disorder, unspecified; E78.00 Pure hypercholesterolemia, unspecified; I10 Essential (primary) hypertension; J44.9 Chronic obstructive pulmonary disease, unspecified; Z96.641 Presence of right artificial hip joint; Z20.828 Contact with and (suspected) exposure to other viral communicable diseases; E78.5 Hyperlipidemia, unspecified; G47.33 Obstructive sleep apnea (adult) (pediatric); J30.9 Allergic rhinitis, unspecified; I44.1 Atrioventricular block, second degree; R79.89 Other specified abnormal findings of blood chemistry; Z85.46 Personal history of malignant neoplasm of prostate; Z87.442 Personal history of urinary calculi; Z87.891 Personal history of nicotine dependence; Z88.1 Allergy status to other antibiotic agents; Z88.0 Allergy status to penicillin; Z88.6 Allergy status to analgesic agent; Z79.818 Long term (current) use of other agents affecting estrogen receptors and estrogen levels; Z83.3 Family history of diabetes mellitus
CPT/HCPCS: 36415; 71045; 80048; 80053; 80061; 80307; 81001; 83690; 83880; 84443; 84484; 85025; 85379; 85610; 93005; 99285; G0378; U0003-CS

== ENCOUNTER → 2019-12-04 | Outpatient (CLI) | payer MEDICARE, BC ==
[2019-11-05 15:00] VITALS: BP 153/51
[~2019-12-04] MED LIST changes: +HYDR-2869 PO; +MONT10TA49 PO; +SIMV10TA15 PO
--- NOTE | 2019-12-04 13:56 | CARD ---
MR#: [id number] Date of Study: 12/04/2019 Ordering Physician: MELISSA REYES, Referring Physician: MELISSA REYES, Tech: Maral Chaudhari APPROVED REPORT EXAM: Two-dimensional and M-mode echocardiogram with Doppler and color Doppler. Other Information Quality : AverageHR: 45bpm INDICATION Dyspnea RISK FACTORS Hypertension Hyperlipidemia 2D DIMENSIONS RVDd5.0 (2.9-3.5cm)Left Atrium(2D)5.1 (1.6-4.0cm) IVSd1.1 (0.7-1.1cm)Aortic Root(2D)3.2 (2.0-3.7cm) LVDd5.9 (3.9-5.9cm)LVOT Diameter2.1 (1.8-2.4cm) PWd1.1 (0.7-1.1cm)LVDs3.2 (2.5-4.0cm) FS (%) 45.4 %SV133.4 ml LVEF(%)76.0 (>50%) Aortic Valve AoV Peak Prabhjot.211.6cm/sAoV VTI49.0cm AO Peak GR.17.9mmHgLVOT Peak Prabhjot.154.5cm/s LVOT VTI 39.86cmAO Mean GR.10mmHg ROLY (VMAX)1.39gw4RKN (VTI)2.72cm2 Mitral Valve MV E Riajtyom547.1cm/sMV DECEL ZYPL241kf MV A Lzxexhmp28.6cm/sMV E Mean Gr.1mmHg MV QTS35wtH/A Ratio1.2 MVA (PHT)3.08cm2 TDI E/Lateral E'17.8E/Medial E'20.6 Pulmonary Valve PV Peak Wxaktqnc635.2cm/sPV Peak Grad.5mmHg Tricuspid Valve TR P. Daqnpuix150ec/sRAP GORIKZLV1coIf TR Peak Gr.82nsIkQPRD98zjOg Pulmonary Vein S1 Uqtgyexo94.3cm/sD2 Wsgzarjl11.8cm/s LEFT VENTRICLE The Left Ventricle is borderline dilated. There is normal left ventricular wall thickness. The left v entricular systolic function is normal and the ejection fraction is within normal range. The Ejection Fraction is 55-60%. There is normal LV segmental wall motion. Transmitral Doppler flow pattern is Gr meng II-pseudonormal filling dynamics. RIGHT VENTRICLE The right ventricle is normal size. There is normal right ventricular wall thickness. The right ventr icular systolic function is normal. ATRIA The left atrium is mildly dilated. The right atrium is borderline dilated. The interatrial septum is intact with no evidence for an atrial septal defect or patent foramen ovale as noted on 2-D or Dopple r imaging. AORTIC VALVE The aortic valve is thickened but opens well. Doppler and Color Flow revealed no significant aortic r egurgitation. There is no significant aortic valvular stenosis. Calculated aortic valve area is 2.79 cm2 with maximum pressure gradient of 19 mmHg and mean pressure gradient of 10 mmHg. MITRAL VALVE The mitral valve is normal in structure and function. There is no evidence of mitral valve prolapse. There is no mitral valve stenosis. Doppler and Color-flow revealed trace mitral regurgitation. TRICUSPID VALVE The tricuspid valve is normal in structure and function. Doppler and Color Flow revealed trace tricus pid regurgitation with an estimated PAP of 37 mmHg. There is no tricuspid valve stenosis. PULMONIC VALVE The pulmonic valve is not well visualized. Doppler and Color Flow revealed trace pulmonic valvular re gurgitation. There is no pulmonic valvular stenosis. GREAT VESSELS The aortic root is normal in size. The ascending aorta is normal in size. The IVC is normal in size a nd collapses >50% with inspiration. PERICARDIAL EFFUSION There is no evidence of significant pericardial effusion. Critical Notification Critical Value: No <Conclusion> The left ventricular systolic function is normal and the ejection fraction is within normal range. Th e Ejection Fraction is 55-60%. There is normal LV segmental wall motion. Signed by : Barney Ribeiro, Electronically Approved : 12/04/2019 13:56:36
== END | disposition home or self-care (01) ==
LOC: ECHO 12:55
PROVIDERS: ATTEND Internal Medicine Cardiovascular Disease
DX: R06.02 Shortness of breath (principal)
CPT/HCPCS: 93306

== ENCOUNTER 2020-09-26 04:49 | Emergency (ER) | payer MEDICARE, BC ==
[~2020-09-26] VITALS: Ht 170.2 cm; Wt 99.1 kg
[~2020-09-26 04:49] MED LIST changes: +AMLO-187 PO; -AMLO10TA8 PO
--- NOTE | 2020-09-26 05:28 | PHYS DOC ---
Past Medical History Past Medical History: Anxiety, GERD, High Cholesterol, Hypertension, Kidney Stone, Other Additional Past Medical Histor: INTERMITTENT BRADYCARDIA, NEUROPATHY, KIDNEY CA, PROSTATE CA, SKIN CA (ABSSAM LY I ) Past Surgical History: Hip Replacement, Other Additional Past Surgical Histo: eye surgery, kidney stone removal with stent placement, PART OF COLON REMOV (BASSAM LY I ) Smoking Status: Former Smoker Alcohol Use: None Drug Use: None (BASSAM LY I ) General Adult EDM: Chief Complaint: LOWER EXT PAIN HPI: HPI: Patient is a 80 year old male presents with a chief complaint of left leg pain. Patient states left leg pain started on Tuesday. Pain is located in the left knee and radiates down to the left ankle. Patient denies any injury. He denies any associated swelling. Patient called his primary care physician's office yesterday who advised patient to get his lower extremity checked out for a DVT. Currently patient states his pain is primarily in his left ankle. On exam patient has full range of motion of left knee and ankle. I do not appreciate any edema. His left lower extremity is neurovascularly intact. (BASSAM LY I ) Review of Systems: Review of Systems: Constitutional: Denies fever or chills. [] Eyes: Denies change in visual acuity. [] HENT: Denies nasal congestion or sore throat. [] Respiratory: Denies cough or shortness of breath. [] Cardiovascular: Denies chest pain or edema. [] GI: Denies abdominal pain, nausea, vomiting, bloody stools or diarrhea. [] : Denies dysuria. [] Musculoskeletal: Denies back pain or joint pain. [Positive leg pain] Integument: Denies rash. [] Neurologic: Denies headache, focal weakness or sensory changes. [] Endocrine: Denies polyuria or polydipsia. [] Lymphatic: Denies swollen glands. [] Psychiatric: Denies depression or anxiety. [] (BASSAM LY Tulio GOOD) Heart Score: C/O Chest Pain: N/A Risk Factors: Risk Factors: DM, Current or recent (<one month) smoker, HTN, HLP, family history of CAD, obesity. Risk Scores: Score 0 - 3: 2.5% MACE over next 6 weeks - Discharge Home Score 4 - 6: 20.3% MACE over next 6 weeks - Admit for Clinical Observation Score 7 - 10: 72.7% MACE over next 6 weeks - Early Invasive Strategies (BASSAM LY DO) Allergies: Allergies: Allergies Coded Allergies Type Severity Reaction Last Updated Verified Cephalosporins Allergy Intermediate rash 10/20/16 Yes Penicillins Allergy Intermediate Rash 10/20/16 Yes ibuprofen Allergy Intermediate rash 11/04/19 Yes tamsulosin Allergy Intermediate rash 10/20/16 Yes I S O L A T I O N *CONTACT* Allergy Unknown 10/21/16 Yes (BASSAM LY DO) Physical Exam: PE: General: alert, no acute distress. Skin: warm, dry and intact, no erythema, no rash. HENT: bilateral external ears normal, oropharynx moist, nose normal. Head:: Normocephalic, atraumatic. Neck: Trachea midline. Eyes: EOMI, Normal conjunctiva, No drainage CARDIOVASCULAR: Regular rate and rhythm RESPIRATORY: No respiratory distress Back: Full range of motion. MUSCULOSKELETAL: Full range of motion of bilateral upper and lower extremities. I do not appreciate any left leg edema, no knee fusion, no overlying cellulitis or ecchymosis, left lower extremity is neurovascularly intact GASTROINTESTINAL: Abdomen soft without rebound or guarding. NEUROLOGICAL: Alert and noted to person, place and time. No neurological deficits observed Psychiatric: Cooperative. Normal judgment (BASSAM LY DO) Current Patient Data: Vital Signs: Vital Signs Date Time Temp Pulse Resp B/P (MAP) Pulse Ox O2 Delivery O2 Flow Rate FiO2 09/26/20 04:53 98.1 52 20 145/68 (85) 99 Room Air 98.1 (BASSAM LY DO) EKG: EKG: [] (BASSAM LY DO) Radiology/Procedures: Radiology/Procedures: [] (BASSAM LY DO) Course & Med Decision Making: Course & Med Decision Making Pertinent Labs and Imaging studies reviewed. (See chart for details) [] Patient was evaluated for chief complaint. Work-up consisted of radiologic imaging. Ultrasound left lower extremity ordered to rule out DVT. Patient will be signed out to Dr. Weiner disposition pending ultrasound results and reevaluation. (BASSAM LY DO) Course & Med Decision Making Assumed care of patient at checkout from Dr. Ly. Check ultrasound was pending to rule out DVT. Ultrasound is normal. Patient's test results and vitals while in the ED were fully reviewed and discussed with the patient. Patient is stable and at this time does not need admission to the hospital. We have discussed strict return precautions and the importance of following up with their Primary Care Physician. Patient stated understanding and was given an opportunity to ask any questions. Patient is in agreement with plan. (MILO WEINER MD) Dragon Disclaimer: Dragon Disclaimer: This electronic medical record was generated, in whole or in part, using a voice recognition dictation system. (BASSAM LY DO) Departure Departure Impression: Primary Impression: Leg pain Disposition: HOME / SELF CARE / HOMELESS Condition: STABLE Referrals: CJ SHEPPARD (PCP) Patient Instructions: Ankle Pain BASSAM LY DO Sep 26, 2020 05:28 MILO WEINER MD Sep 26, 2020 06:18
--- NOTE | 2020-09-26 06:14 | RAD ---
Exam: US DPLX VENOUS EXTREMITY LOWER LT Indication: leg pain Technique: Color-flow and pulsed wave duplex ultrasound with compression of venous structures of the left lower extremity. Comparison: None Available. Findings: Duplex ultrasound with compression of the deep venous structures of the left lower extremit y from the common femoral vein through the popliteal vein is negative for DVT. The posterior tibial a nd peroneal veins are segmentally visualized and patent where seen. Normal venous waveforms and augme ntation are noted throughout. Impression: No evidence for DVT in the left lower extremity. Electronically signed by: Quinten Chester MD (09/26/2020 6:11 AM) LEONARDA
[2020-09-26 06:36] VITALS: BP 177/75
== END 2020-09-26 06:45 | disposition home or self-care (01) ==
LOC: ER 04:49
DX: M79.605 Pain in left leg (principal); F41.9 Anxiety disorder, unspecified; K21.9 Gastro-esophageal reflux disease without esophagitis; E78.00 Pure hypercholesterolemia, unspecified; I10 Essential (primary) hypertension; Z87.442 Personal history of urinary calculi; Z88.1 Allergy status to other antibiotic agents; Z88.0 Allergy status to penicillin; Z88.8 Allergy status to other drugs, medicaments and biological substances
CPT/HCPCS: 93971; 99284

== ENCOUNTER → 2020-10-07 | Outpatient (CLI) | payer MEDICARE, BC ==
[2020-09-26 06:36] VITALS: BP 177/75
--- NOTE | 2020-10-07 15:34 | RAD ---
MRI of the lumbar spine without contrast 10/07/2020 CLINICAL HISTORY: Low back pain which radiates down the left leg. TECHNIQUE: Unenhanced T1-weighted and T2-weighted sagittal and axial and inversion recovery sagittal images of the lumbar spine were obtained. FINDINGS: Comparison study is dated 04/17/2014. Minimal S-shaped curvature of the thoracolumbar spine is seen. Degenerative signal changes are seen i nvolving all of the disks of the lumbar spine. Degenerative signal changes are seen within the marrow surrounding these discs. A 1.5 cm hemangioma is seen involving the T12 vertebral body. The conus med ullaris is normal morphology, position, and signal characteristics. A 6.2 cm low signal intensity mas s lesion is seen on the T1-weighted images extending inferiorly from the lower pole of the right kidn ey. This demonstrates decreased signal intensity on the T2-weighted images. It likely represents a he morrhagic/proteinaceous cyst. No further imaging evaluation is recommended. At the L1-2 and L2-3 disc spaces there are minimal to mild generalized disc bulges. Degenerative valladares ges are seen involving the facet joints bilaterally. These findings do not result in significant cent ral spinal canal or neural foraminal stenosis. At the L3-4 disc space there is a moderate generalized disc bulge. Degenerative changes are seen invo lving the facet joints bilaterally. There is moderate ligamentum flavum hypertrophy bilaterally. Thes e findings when combined result in moderate to severe central spinal canal stenosis. Mild bilateral n eural foraminal stenosis is seen. At the L4-5 disc space there is a moderate generalized disc bulge. Superimposed on this disc bulge is a central/left paracentral focal disc protrusion. This measures 5 mm in AP diameter. Degenerative ch anges are seen involving the facet joints bilaterally. There is moderate ligamentum flavum hypertroph y bilaterally. There are small facet joint effusions bilaterally. These findings when combined result in severe left greater than right central spinal canal stenosis. The disc protrusion appears to impi nge upon the left L5 nerve root within the left aspect of the central spinal canal. Mild to moderate left greater than right neural foraminal stenosis is seen. At the L5-S1 disc space there is a mild to moderate generalized disc bulge. Degenerative changes are seen involving the facet joints bilaterally. There is mild ligamentum flavum hypertrophy bilaterally. These findings when combined do not result in significant central spinal canal stenosis mild to mode rate left greater than right neural foraminal stenosis is seen. IMPRESSION: The changes of degenerative disc disease are seen throughout the lumbar spine. These find ings result in moderate to severe central spinal canal stenosis at L3-4 and severe left greater than right central spinal canal stenosis at L4-5. Mild bilateral neural foraminal stenosis is seen at L3-4 . Mild to moderate left greater than right neural foraminal stenosis is seen at L4-5. Mild to moderat e left greater than right neural foraminal stenosis is seen at L5-S1. Electronically signed by: Tray Cash MD (10/07/2020 3:32 PM) [id number]
== END ==
LOC: MRI 11:06
PROVIDERS: ATTEND Family Medicine
DX: M47.817 Spondylosis without myelopathy or radiculopathy, lumbosacral region (principal); M51.27 Other intervertebral disc displacement, lumbosacral region; M48.07 Spinal stenosis, lumbosacral region; M54.32 Sciatica, left side; D18.09 Hemangioma of other sites; M43.8X5 Other specified deforming dorsopathies, thoracolumbar region
CPT/HCPCS: 72148

== ENCOUNTER → 2020-10-13 | Outpatient (CLI) | payer MEDICARE, BC ==
[2020-09-26 06:36] VITALS: BP 177/75
[2020-10-13 15:07] LABS: BASO # 0.1 x10^3/uL (0.0-0.2); BASO % 1 % (0-3); EOS # 0.7 x10^3/uL (0.0-0.7); EOS % 11 % (0-3); HEMATOCRIT 32.9 % (39.0-53.0); HEMOGLOBIN 11.4 g/dL (13.0-17.5); LYMPH # 1.3 x10^3/uL (1.0-4.8); LYMPH % 20 % (24-48); MEAN CORPUSCULAR HEMOGLOBIN 34 pg (25-35); MEAN CORPUSCULAR HGB CONC 35 g/dL (31-37); MEAN CORPUSCULAR VOLUME 97 fL (79-100); MONO # 0.4 x10^3/uL (0.0-1.1); MONO % 6 % (0-9); NEUT % 62 % (31-73); PLATELET COUNT 183 x10^3/uL (140-400); RED BLOOD COUNT 3.39 x10^6/uL (4.30-5.70); RED CELL DISTRIBUTION WIDTH 14.2 % (11.5-14.5); WHITE BLOOD COUNT 6.4 x10^3/uL (4.0-11.0)
[2020-10-13 15:33] LABS: CALCIUM 9.1 mg/dL (8.5-10.1); CREATININE 1.4 mg/dL (0.7-1.3); GFR 48.5; POTASSIUM 4.2 mmol/L (3.5-5.1)
[2020-10-13 15:39] LABS: ALBUMIN 3.4 g/dL (3.4-5.0); ALBUMIN/GLOBULIN RATIO 1.2 (1.0-1.7); TOTAL BILIRUBIN 0.3 mg/dL (0.2-1.0); TOTAL PROTEIN 6.3 g/dL (6.4-8.2)
[2020-10-14 16:26] LABS: KAPPA FREE 64.1 mg/L (3.3-19.4); KAPPA LAMBDA RATIO 6.16 (0.26-1.65); LAMBDA FREE 10.4 mg/L (5.7-26.3)
[2020-10-15 15:17] LABS: ALBUM 3.5 g/dL (2.9-4.4); ALPHA 1 0.3 g/dL (0.0-0.4); ALPHA 2 0.6 g/dL (0.4-1.0); BETA 0.9 g/dL (0.7-1.3); COMMENT IMMUNOFIX SERUM Note: (.); GAMMA 0.8 g/dL (0.4-1.8); IMMUNOGLOBULIN A 653 mg/dL (61-437); IMMUNOGLOBULIN G 288 mg/dL (603-1613); IMMUNOGLOBULIN M 27 mg/dL (15-143); SPEP AG RATIO 1.4 (0.7-1.7)
== END ==
LOC: ONCLAB 14:41
PROVIDERS: ATTEND Internal Medicine Hematology & Oncology
DX: D47.2 Monoclonal gammopathy (principal)
CPT/HCPCS: 36415; 80053; 82784; 83520; 84165; 85025; 86334

== ENCOUNTER → 2020-10-20 | Outpatient (CLI) | payer MEDICARE, BC ==
[2020-09-26 06:36] VITALS: BP 177/75
[~2020-10-20] MED LIST changes: +DOCU50CA9 PO; +GABA300C18 PO; +IOHEXOL 180 MG/ML 10 ML VIAL. ONE; +LACT1CAP6 PO; +LEUP3.75 IM; +METH-561 PO; +POLY119P PO; +methylPREDNISolone ACETATE 40 MG/ML VIAL. ONE; +methylPREDNISolone ACETATE 80 MG/ML VIAL. ONE
--- NOTE | 2020-10-20 15:56 | PDOC1 ---
INITIAL PAIN CONSULT DATE OF SERVICE: DOS: DATE: 10/20/20 TIME: 15:49 CHIEF COMPLAINT: Chief Complaint: Low back and left lower extremity pain HISTORY OF PRESENT ILLNESS: 80-year-old male presents history of pain in the low back left lower extremity for approximately 1 month without the result of any injury or accident that he is aware of. Patient reports the pain began getting worse after playing golf September 23. Patient has previous diagnosis of neuropathy taking gabapentin for this also physical therapy exercises which have not helped decreasing the pain thus far. Patient is taking hydrocodone as well as Tylenol and Aleve all of which decrease the pain to some extent that hydrocodone does the best. Patient also uses lidocaine patch leg times which helps only to a moderate extent. Patient had chiropractic treatment again has had physical therapy this year at [facility] and is doing the exercises currently but is not decreasing the pain significantly. Patient cries pain is constant sharp change during the day worse with walking standing changing positions wakes him from sleep occasionally but not most nights defect reports does not affect his bowel bladder control but does affect his ability to walk is using a walker for the last 1 month or so. 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 Patient had MRI scan lumbar spine showing changes of degenerative disc disease throughout the lumbar spine with a moderate to severe central spinal canal stenosis L3-4 and severe left greater than right central spinal canal stenosis L4-5 mild bilateral neuroforaminal stenosis at L3-4 mild to moderate left greater than right neuroforaminal stenosis is seen at L4-5 with mild to moderate left greater than right neuroforaminal stenosis at L5-S1. PAST MEDICAL HISTORY: PMH: Hypertension, arthritis, gastroesophageal reflux, hyperlipidemia, colon polyps, prostate cancer, kidney cancer, skin cancer PREVIOUS SURGERIES: Past Surgical Hx: Colon resection March 2019, prostate biopsy, radiation treatment for prostate cancer, eye surgery, right total hip arthroplasty, left kidney resection, tonsillectomy CURRENT MEDICATIONS: Current Meds: Active Scripts Medications Dose Route/Sig Max Daily Dose Days Date Category Stool Softener (Docusate Sodium) 50 Mg Capsule 100 Mg PO DAILY 10/20/20 Reported Probiotic (Lactobacillus Acidophilus) 1 Each Capsule 1 Cap PO DAILY 10 10/20/20 Reported Clearlax (Polyethylene Glycol 3350) 119 Gm Powder 119 Gm PO DAILY 10/20/20 Reported Gabapentin (Gabapentin) 300 Mg Capsule 300 Mg PO TID 10/20/20 Reported Methocarbamol 500 Mg Tablet 500 Mg PO DAILY 10/20/20 Reported Lupron Depot (Leuprolide Acetate) 3.75 Mg Syringekit Unknown Dose IM YEARLY 10/20/20 Reported Montelukast Sodium Tablet (Montelukast Sodium) 10 Mg Tablet 10 Mg PO HS 30 11/05/19 Rx Hydralazine Hcl 50 Mg Tablet 1 Tab PO TID 11/05/19 Reported Simvastatin 10 Mg Tablet 1 Tab PO QHS 11/05/19 Reported Hydrochlorothiazide Tablet (Hydrochlorothiazide) 25 Mg Tablet 25 Mg PO DAILY 10/20/16 Reported Tramadol Hcl 50 Mg Tablet 1 Tab PO PRN Q6HRS 10/20/16 Reported Dymista Nasal [place] (Azelastine/Fluticasone) 23 Gm [place].pump 1 [place] NS BID 10/20/16 Reported Amlodipine Besylate 10 Mg Tablet 5 Mg PO DAILY 10/20/16 Reported Doxazosin Mesylate 4 Mg Tablet 1 Tab PO BID 10/20/16 Reported Benicar (Olmesartan Medoxomil) 40 Mg Tablet 1 Tab PO DAILY 05/08/15 Reported Lansoprazole 30 Mg Capsule.dr 30 Mg PO DAILY 05/09/14 Reported Fluticasone Propionate Nasal [place] (Fluticasone Propionate) 16 Gm [place].susp 2 [place] NS DAILY 11/29/13 Reported Multivitamins (Multivitamin) 1 Each Tablet 1 Tab PO DAILY 11/29/13 Reported Buspirone Hcl 10 Mg Tablet 2 Tab PO BID 11/29/13 Reported ALLERGIES; Allergies: Coded Allergies: Cephalosporins (Verified Allergy, Intermediate, rash, 10/20/16) Penicillins (Verified Allergy, Intermediate, Rash, 10/20/16) BETALACTAMS ibuprofen (Verified Allergy, Intermediate, rash, 11/04/19) Has taken aspirin before tamsulosin (Verified Allergy, Intermediate, rash, 10/20/16) I S O L A T I O N *CONTACT* (Verified Allergy, Unknown, 10/21/16) mrsa FAMILY HISTORY: Family Hx: Hypertension SOCIAL HISTORY: Social Hx: Patient is under alcohol does not smoke says any illegal illicit recreational drugs is lives with spouse lives locally in [facility] and is currently retired. REVIEW OF SYSTEMS: ROS: Positive for those items mentioned in history of present illness, all systems are reviewed, otherwise negative ,and are complete full and well-documented on patient's chart. PHYSICAL EXAM: VS: Blood pressure 155/67 pulse 50 respirations 16 temperature 97.8 F height is 5 foot 7 inches weight is 213 pounds PE: PHYSICAL EXAMINATION: GENERAL: The patient is awake, alert, oriented, appropriate, very pleasant in demeanor HEENT: Shows normocephalic, atraumatic. Extraocular movements are intact and symmetrical. Oral cavity: Mucous membranes moist and pink. NECK: Shows anterior throat supple without palpable lymphadenopathy noted. Swallow reflex symmetrical. CHEST: Shows normal on inspection. Breath sounds are clear bilaterally, no rales rhonchi or wheezes auscultated. HEART: Shows S1, S2 clear. No murmurs auscultated. ABDOMEN: Soft, nontender, nondistended, obese. No palpable organomegaly is noted. No rebound or guarding demonstrated. BACK: Shows spine grossly in the midline. Normal-appearing cervical lordotic curvature. There is slightly increased thoracic kyphosis, some minor flattening of the lumbar lordotic curvature. Lumbar paraspinous muscles show symmetrical on inspection, on palpation shows some moderate tenderness diffusely throughout the upper, middle and lower distribution of the paraspinous muscles bilaterally and also into the lower thoracic paraspinous musculature, firm and tender, but without specific trigger points, without radiation of pain. The patient has good rotational motion of the lumbar spine, both laterally as well as extension and flexion without significant difficulty. No tenderness over the spinous processes, sacrum or sacroiliac regions. EXTREMITIES: Lower extremities show deep tendon reflexes 1+ in the patellar and tendo calcaneus tendons. Motor exam is 5 on a scale of 5 with right dorsiflexion, extension, quadriceps and hamstring flexion and 4/5 on the left. Peripheral pulses are 1 posterior tibial. No peripheral edema is noted bilaterally. Lower extremities are warm and dry to touch, equal in color and appearance. Straight leg raise noted to be positive on the left approximate 40 degrees decreased with knee flexion, right side is negative. Gaenslen's and Nguyễn's maneuvers are negative bilaterally. The patient is able to stand, has difficulty getting up from seated position uses his walker to stand and is walking with a shuffling gait does appear to favor the left lower extremity over the right and again using walker to ambulate. SKIN: Shows warm and dry, good turgor. No edema. No sores, rashes or bruising throughout. IMPRESSION: Impression: 80-year-old male with approximate 1 month history increasing pain low back left lower extremity radicular fashion. Lumbar MRI scan as noted Arthritis Hypertension History of kidney cancer, and prostate cancer Hyperlipidemia Plan: Options were discussed with the patient including conservative management physical therapies interventional techniques. Patient would like to pursue interventional techniques. We discussed a lumbar epidural steroid injections description as well as anatomical models described procedure. Risks were discussed including but not limited to: Bleeding, infection, possibility of epidural hematoma and subsequent neurological compromise, dural puncture, headaches, spinal cord and/or nerve damage, side effects of steroid medication, and poor results regarding pain control. Patient understands and wished to proceed. Procedure is lumbar epidural steroid injection under local anesthetic using sterile prep and drape at the L5-S1 level using C-arm fluoroscopic guidance in both AP and lateral views medications injected is 120 mg Depo-Medrol +10mL preservative-free normal saline and 2 mL contrast- condition at discharge is stable patient tolerated procedure well had no complications. HUBER HANSON MD Oct 20, 2020 15:56
--- NOTE | 2020-10-20 15:57 | PDOC4 ---
Procedure Note: ICD 10 Code: ICD 10 Code: M54.17 M 40.07 Procedure Note: Patient was consented for lumbar epidural steroid injection with fluoroscopic guidance. Risks were discussed including but not limited to: Bleeding, infection, possibility of epidural hematoma and subsequent neurological compromise, dural puncture, headaches, spinal cord and/or nerve damage, side effects of steroid medication, and poor results regarding pain control. Patient understands and wished to proceed. Procedure is lumbar epidural steroid injection under local anesthetic using sterile prep and drape at the L5-S1 level using C-arm fluoroscopic guidance in both AP and lateral views medications injected is 120 mg Depo-Medrol +10mL preservative-free normal saline and 2 mL contrast- condition at discharge is stable patient tolerated procedure well had no complications. HUBER HANSON MD Oct 20, 2020 15:57
== END ==
LOC: PNCL 12:55
PROVIDERS: ATTEND Anesthesiology
DX: M48.061 Spinal stenosis, lumbar region without neurogenic claudication (principal); M54.5 Low back pain; M79.662 Pain in left lower leg; I10 Essential (primary) hypertension; K21.9 Gastro-esophageal reflux disease without esophagitis; M19.90 Unspecified osteoarthritis, unspecified site; E78.5 Hyperlipidemia, unspecified; Z86.010 Personal history of colon polyps; Z85.828 Personal history of other malignant neoplasm of skin; Z85.46 Personal history of malignant neoplasm of prostate; Z85.528 Personal history of other malignant neoplasm of kidney; Z79.899 Other long term (current) drug therapy; Z92.3 Personal history of irradiation; Z96.641 Presence of right artificial hip joint; Z98.890 Other specified postprocedural states
CPT/HCPCS: 62323; 99214; J1030; J1040; Q9965; G0463

== ENCOUNTER → 2021-02-17 | Outpatient (CLI) | payer MEDICARE, BC ==
[2020-12-26 10:56] VITALS: BP 143/62
[~2021-02-17] MED LIST changes: +CALC500T54 PO; +FLECTOR1 EACH TP; +LIDO700A21 TP; +METO-239 PO; +RIVA15TA PO; -methylPREDNISolone ACETATE 40 MG/ML VIAL. ONE; +vitamin d
--- NOTE | 2021-02-17 15:54 | PDOC4 ---
Procedure Note: ICD 10 Code: ICD 10 Code: M54.16 M51.36 M4 8.06 Procedure Note: Patient was consented for lumbar epidural steroid injection with fluoroscopic guidance. Risks were discussed including but not limited to: Bleeding, infection, possibility of epidural hematoma and subsequent neurological compromise, dural puncture, headaches, spinal cord and/or nerve damage, side effects of steroid medication, and poor results regarding pain control. Patient understands and wished to proceed. Procedure is lumbar epidural steroid injection under local anesthetic using shantelle rile prep and drape at the L5-S1 level using C-arm fluoroscopic guidance in both AP and lateral views medications injected is 120 mg Depo-Medrol +10mL preservative-free normal saline and 2 mL contrast- condition at discharge is stable patient tolerated procedure well had no complications. HUBER HANSON MD Feb 17, 2021 15:54
--- NOTE | 2021-02-17 15:54 | PDOC ---
Progress Note - Pain Clinic Date of Service: DOS: DATE: 02/17/21 TIME: 15:51 Diagnosis: Dx: Lumbar radiculopathy with lumbar degenerative disc disease and lumbar spinal stenosis History or Present Illness: HPI: 80-year-old male returns for follow-up status post lumbar epidurals or injection x1 last seen 10/20/2020. Patient reports he did very well about 80% improvement initially now down to about 30% improvement lasted for quite a while prior to the return of the pain about a month ago patient reports pain in the low back and now more on the right lower extremity than the left lower extremity previously was on the left side he still has some pain in the left but now is more noticeable in the right posterior gluteus lateral thigh posterior calf lateral calf and some in the medial calf as well patient reports aching sharp in the back shooting and tingling in the legs on and off in intensity worse with walking standing changing positions better with sitting or laying down patient reports it generally does not awaken her from sleep at night patient rates the pain as a 6 on scale 10 is worse over the past week 3 on average 0 its least is a 3 today patient reports initially doing much better distance walking doing household activities travel with greater ease and comfort as well. Patient reports no new bowel or bladder incontinence. Physical Exam: VS: Blood pressure is 158/79 pulse 72 respirations 18 temperature point 4 F height is 5 feet 7 inches weight is 228 pounds. PE: PHYSICAL EXAMINATION: GENERAL: The patient is awake, alert, oriented, appropriate, very pleasant in demeanor HEENT: Shows normocephalic, atraumatic. Extraocular movements are intact and symmetrical. Oral cavity: Mucous membranes moist and pink. NECK: Shows anterior throat supple without palpable lymphadenopathy noted. Swallow reflex symmetrical. CHEST: Shows normal on inspection. Breath sounds are clear bilaterally, no rales or rhonchi. HEART: Shows S1, S2 clear. No murmurs auscultated. ABDOMEN: Soft, nontender, nondistended, obese. No palpable organomegaly is noted. BACK: Shows spine grossly in the midline. Normal-appearing cervical lordotic curvature. There is increased thoracic kyphosis, some flattening of the lumbar lordotic curvature. Lumbar paraspinous muscles show symmetrical on inspection, on palpation shows some moderate tenderness diffusely throughout the upper, middle and lower distribution of the paraspinous muscles without specific trigger points, without radiation of pain. The patient has good rotational motion of the lumbar spine, both laterally as well as extension and flexion without significant difficulty. EXTREMITIES: Lower extremities show deep tendon reflexes 1+ in the patellar and tendo calcaneus tendons. Motor exam is 5 on a scale of 5 with right dorsiflexion, extension, quadriceps and hamstring flexion and 4/5 on the left. Peripheral pulses are 1+ posterior tibial. No peripheral edema is noted bilaterally. Lower extremities are warm and dry to touch, equal in color and appearance. SKIN: Shows warm and dry, good turgor. No edema. No sores, rashes or bruising throughout. Procedure: Procedure: Options were discussed with the patient. Patient chart was reviewed as was his current medication regimen updated, and current review of systems updated today as well. We will proceed with a lumbar epidural steroid injection today with fluoroscopic guidance. Risks were discussed including but not limited to: Bleeding, infection, possibility of epidural hematoma and subsequent neurological compromise, dural puncture, headaches, spinal cord and/or nerve damage, side effects of steroid medication, and poor results regarding pain control. Patient understands and wished to proceed. Patient will return to the clinic in approximate 2 weeks for follow-up, was counseled as return appointment, activity level, and side effect to be aware of. Medication Injected: Med Injected: Procedure is lumbar epidural steroid injection under local anesthetic using sterile prep and drape at the L5-S1 level using C-arm fluoroscopic guidance in both AP and lateral views medications injected is 120 mg Depo-Medrol +10mL preservative-free normal saline and 2 mL contrast- condition at discharge is stable patient tolerated procedure well had no complications. Condition at Discharge: Condition at Discharge: Condition at discharge stable, patient tolerated procedure well and had no complications. HUBER HANSON MD Feb 17, 2021 15:54
== END | disposition home or self-care (01) ==
LOC: PNCL 14:45
PROVIDERS: ATTEND Anesthesiology
DX: M51.16 Intervertebral disc disorders with radiculopathy, lumbar region (principal); M48.061 Spinal stenosis, lumbar region without neurogenic claudication; I10 Essential (primary) hypertension; E78.00 Pure hypercholesterolemia, unspecified; J44.9 Chronic obstructive pulmonary disease, unspecified; G47.30 Sleep apnea, unspecified; K21.9 Gastro-esophageal reflux disease without esophagitis; F41.9 Anxiety disorder, unspecified; Z85.828 Personal history of other malignant neoplasm of skin; Z79.899 Other long term (current) drug therapy; Z98.890 Other specified postprocedural states; Z87.891 Personal history of nicotine dependence; Z88.0 Allergy status to penicillin; Z88.8 Allergy status to other drugs, medicaments and biological substances
CPT/HCPCS: 62323; J1040; Q9965

== ENCOUNTER → 2021-03-12 | Outpatient (CLI) | payer MEDICARE, BC ==
[2020-12-26 10:56] VITALS: BP 143/62
[~2021-03-12] MED LIST changes: -IOHEXOL 180 MG/ML 10 ML VIAL. ONE; -methylPREDNISolone ACETATE 80 MG/ML VIAL. ONE
--- NOTE | 2021-03-12 12:43 | PDOC ---
Progress Note - Pain Clinic Date of Service: DOS: DATE: 03/12/21 TIME: 12:38 Diagnosis: Dx: Lumbar radiculopathy with lumbar degenerative disease and lumbar spinal stenosis History or Present Illness: HPI: 80-year-old male returns for follow-up status post lumbar epidural steroid injection x2. Patient last seen February 17, 2021 had very good results with near 100% improvement in his low back and legs patient reports his legs are almost completely pain-free some pain in the low back but very minimally patient reports he is increasing activity with distance walking doing household activities travel with greater ease and comfort sleeping better at night patient reports he generally does not awaken him from sleep at night patient rates his pain as a 3 on scale 10 is worse over the past week 2 on average 0 to least 2 today patient which is aching and dull in the back with radiating pain in the left lower extremity as well as the right but the right lower extremity is completely without pain. Patient reports he is walking daily up to 1 to 2 miles in his basement walking laps as well as doing stretches and strengthening exercises patient is still undergoing physical therapy and feels this is helpful as well. Patient reports no motor deficits no bowel or bladder incontinence. Patient reports she has had a pacemaker placed since his last visit as well. Patient's daughter accompanies him to his visit today and has several questions regarding future treatment as well as activity stretching and home exercise regimens. We discussed these with she and her father and questions were all answered to their satisfaction. Physical Exam: VS: Blood pressure is 139/64 pulse 72 respirations 18 temperature 98.1 F weight is 228 pounds PE: PHYSICAL EXAMINATION: GENERAL: The patient is awake, alert, oriented, appropriate, very pleasant and demeanor, patient accompanied by his daughter. HEENT: Shows normocephalic, atraumatic. Extraocular movements are intact and symmetrical. Oral cavity: Mucous membranes moist and pink. NECK: Shows anterior throat supple without palpable lymphadenopathy noted. Swallow reflex symmetrical. CHEST: Shows normal on inspection. Breath sounds are clear bilaterally. HEART: Shows S1, S2 clear. No murmurs auscultated. ABDOMEN: Soft, nontender, nondistended. No palpable organomegaly is noted. No rebound or guarding demonstrated. BACK: Shows spine grossly in the midline. Normal-appearing cervical lordotic curvature. There is moderately increased thoracic kyphosis, some flattening of the lumbar lordotic curvature. Lumbar paraspinous muscles show symmetrical on inspection, on palpation shows some moderate tenderness diffusely throughout the upper, middle and lower distribution of the paraspinous muscles, but without s pecific trigger points, without radiation of pain. The patient has good rotational motion of the lumbar spine, both laterally as well as extension and flexion without significant difficulty. No tenderness over the spinous processes, sacrum or sacroiliac regions. EXTREMITIES: Lower extremities show deep tendon reflexes 1+ in the patellar and tendo calcaneus tendons. Motor exam is 5 on a scale of 5 with right dorsiflexion, extension, quadriceps and hamstring flexion and 4/5 on the left. Peripheral pulses are 1+ posterior tibial. No peripheral edema is noted bilaterally. Lower extremities are warm and dry. SKIN: Shows warm and dry, good turgor. No edema. No sores, rashes or bruising throughout. Procedure: Procedure: Options were discussed with the patient. Patient chart reviews his current medication regimen updated current review of systems updated today as well. We will hold on any further injections at this time as patient doing much better, patient was encouraged to maintain activity as well as walking stretching and physical therapy exercises as currently. Patient also taking Xarelto, and reminded that if pain returns and he does need further interventional treatment this will need to be held for 2 days prior to a procedure. Patient voices understanding. Again, patient and patient's daughter had multiple questions today regarding patient's pain condition and treatment home exercise and activities, which were all addressed and questions answered to their content. Medication Injected: Med Injected: None Condition at Discharge: Condition at Discharge: Condition at discharge is stable. HUBER HANSON MD Mar 12, 2021 12:43
== END | disposition home or self-care (01) ==
LOC: PNCL 11:33
PROVIDERS: ATTEND Anesthesiology
DX: M51.16 Intervertebral disc disorders with radiculopathy, lumbar region (principal); M48.061 Spinal stenosis, lumbar region without neurogenic claudication; I10 Essential (primary) hypertension; E78.00 Pure hypercholesterolemia, unspecified; J44.9 Chronic obstructive pulmonary disease, unspecified; K21.9 Gastro-esophageal reflux disease without esophagitis; G47.30 Sleep apnea, unspecified; F41.9 Anxiety disorder, unspecified; Z85.828 Personal history of other malignant neoplasm of skin; Z79.899 Other long term (current) drug therapy; Z98.890 Other specified postprocedural states; Z88.0 Allergy status to penicillin; Z88.8 Allergy status to other drugs, medicaments and biological substances
CPT/HCPCS: 99212; G0463

== ENCOUNTER → 2021-04-27 | Outpatient (CLI) | payer MEDICARE, BC ==
[2020-12-26 10:56] VITALS: BP 143/62
[2021-04-27 14:08] LABS: BASO # 0.1 x10^3/uL (0.0-0.2); BASO % 1 % (0-3); EOS # 0.7 x10^3/uL (0.0-0.7); EOS % 12 % (0-3); HEMATOCRIT 32.1 % (39.0-53.0); HEMOGLOBIN 10.5 g/dL (13.0-17.5); LYMPH # 1.9 x10^3/uL (1.0-4.8); LYMPH % 32 % (24-48); MEAN CORPUSCULAR HEMOGLOBIN 31 pg (25-35); MEAN CORPUSCULAR HGB CONC 33 g/dL (31-37); MEAN CORPUSCULAR VOLUME 93 fL (79-100); MONO # 0.4 x10^3/uL (0.0-1.1); MONO % 7 % (0-9); NEUT # 2.9 x10^3/uL (1.8-7.7); NEUT % 48 % (31-73); PLATELET COUNT 201 x10^3/uL (140-400); RED BLOOD COUNT 3.44 x10^6/uL (4.30-5.70); RED CELL DISTRIBUTION WIDTH 15.5 % (11.5-14.5); WHITE BLOOD COUNT 6.1 x10^3/uL (4.0-11.0)
[2021-04-27 15:46] LABS: CALCIUM 8.5 mg/dL (8.5-10.1); CREATININE 1.2 mg/dL (0.7-1.3); POTASSIUM 4.1 mmol/L (3.5-5.1)
[2021-04-27 16:04] LABS: ALBUMIN 3.3 g/dL (3.4-5.0); ALBUMIN/GLOBULIN RATIO 0.9 (1.0-1.7); TOTAL BILIRUBIN 0.3 mg/dL (0.2-1.0)
[2021-04-28 15:17] LABS: KAPPA FREE 68.9 mg/L (3.3-19.4); KAPPA LAMBDA RATIO 6.21 (0.26-1.65); LAMBDA FREE 11.1 mg/L (5.7-26.3)
== END ==
LOC: ONCLAB 13:35
PROVIDERS: ATTEND Internal Medicine Hematology & Oncology
DX: D47.2 Monoclonal gammopathy (principal); N18.9 Chronic kidney disease, unspecified; D63.1 Anemia in chronic kidney disease
CPT/HCPCS: 36415; 80053; 82728; 82784; 83520; 83540; 83550; 84165; 85025; 86334

== ENCOUNTER → 2021-04-28 | Outpatient (CLI) | payer MEDICARE, BC ==
[2020-12-26 10:56] VITALS: BP 143/62
[~2021-04-28] MED LIST changes: +DEXAMETHASONE PRES.FREE 10 MG/ML VIAL. ONE; +IOHEXOL 180 MG/ML 10 ML VIAL. ONE
--- NOTE | 2021-04-28 16:37 | PDOC ---
Progress Note - Pain Clinic Date of Service: DOS: DATE: 04/28/21 TIME: 16:34 Diagnosis: Dx: Lumbar radiculopathy with lumbar degenerative disease lumbar spinal stenosis History or Present Illness: HPI: 80-year-old male returns for follow-up status post lumbar epidural steroid injection most recently February 17, 2021. Patient did very well but 80% improvement for several months but he was shoveling snow last week and had some significant pain in the low back and into the left lower extremity patient reports across the low back and the left lower extremity posterior gluteus lateral thigh anterior thigh medial thigh especially in the calf and also in the mcgrath on the left leg greater than right patient reports generally the pain is only in the back of the thighs but his front of his shins is new for him and it is much more painful now specially on the left side some on the right side as well but mostly on the left patient reports is aching until on and off in intensity worse with walking standing changing positions generally better with laying down does not awaken him from sleep at night and better with sitting patient reports initially was doing much better distance walking doing household activities travel with greater ease and comfort now the pain is significant and again more in the left anterior lower leg than previously patient rates his pain is a 5 on a scale 10 is worse over the past week for an average 0 its least is a 4 today. Patient reports no bowel or bladder incontinence. Physical Exam: VS: Blood pressure is 161/79 pulse is 78 respirations 18 temperature 98.2 F height is 5 feet 7 inches weight 233 pounds. PE: PHYSICAL EXAMINATION: GENERAL: The patient is awake, alert, oriented, appropriate, very pleasant in demeanor HEENT: Shows normocephalic, atraumatic. Extraocular movements are intact and symmetrical. Oral cavity: Mucous membranes moist and pink. NECK: Shows anterior throat supple without palpable lymphadenopathy noted. Swallow reflex symmetrical. CHEST: Shows normal on inspection. Breath sounds are clear bilaterally, no rales rhonchi or wheezes auscultated. HEART: Shows S1, S2 clear. No murmurs auscultated. ABDOMEN: Soft, nontender, nondistended. No palpable organomegaly is noted. No rebound or guarding demonstrated. BACK: Shows spine grossly in the midline. Normal-appearing cervical lordotic curvature. There is increased thoracic kyphosis, some moderate flattening of the lumbar lordotic curvature. Lumbar paraspinous muscles show symmetrical on inspection, on palpation shows some moderate tenderness diffusely throughout the upper, middle and lower distribution of the paraspinous muscles without specific trigger points, without radiation of pain. The patient has good rotational motion of the lumbar spine, both laterally as well as extension and flexion without significant difficulty. No tenderness over the spinous processes, sacrum or sacroiliac regions. EXTREMITIES: Lower extremities show deep tendon reflexes 1+ in the patellar and tendo calcaneus tendons. Motor exam is 5 on a scale of 5 with right dorsiflexion, extension, quadriceps and hamstring flexion and 4/5 on the left. Peripheral pulses are 1+ posterior tibial. No peripheral edema is noted bilaterally. Lower extremities are warm and dry to touch, equal in color and appearance. SKIN: Shows warm and dry, good turgor. No edema. No sores, rashes or bruising throughout. Procedure: Procedure: Options were discussed with the patient. Patient's old chart was reviewed his current medication regimen updated current review of systems updated today as well. We will proceed with a lumbar epidural steroid injection today with fluoroscopic guidance. Risks were discussed including but not limited to: Bleeding, infection, possibility of epidural hematoma and subsequent neurological compromise, dural puncture, headaches, spinal cord and/or nerve damage, side effects of steroid medication, and poor results regarding pain control. Patient understands and wished to proceed. Patient return to clinic in approximately 2 weeks for follow-up, was counseled as to return appointment, activity level, and side effect to be aware of. Medication Injected: Med Injected: Procedure is lumbar epidural steroid injection under local anesthetic using sterile prep and drape at the L5-S1 level using C-arm fluoroscopic guidance in both AP and lateral views medications injected is 20 mg dexamethasone +10mL preservative-free normal saline and 2 mL contrast- condition at discharge is stable patient tolerated procedure well had no complications. Condition at Discharge: Condition at Discharge: Condition at discharge stable, patient tolerated the procedure well and had no complications. HUBER HANSON MD Apr 28, 2021 16:37
--- NOTE | 2021-04-28 16:38 | PDOC4 ---
Procedure Note: ICD 10 Code: ICD 10 Code: M54.16 M51.36 M4 8.06 Procedure Note: Patient was consented for lumbar epidural steroid injection with fluoroscopic guidance. Risks were discussed including but not limited to: Bleeding, infection, possibility of epidural hematoma and subsequent neurological compromise, dural puncture, headaches, spinal cord and/or nerve damage, side effects of steroid medication, and poor results regarding pain control. Patient understands and wished to proceed. Procedure is lumbar epidural steroid injection under local anesthetic using shantelle rile prep and drape at the L5-S1 level using C-arm fluoroscopic guidance in both AP and lateral views medications injected is 20 mg dexamethasone +10mL preservative-free normal saline and 2 mL contrast- condition at discharge is stable patient tolerated procedure well had no complications. HUBER HANSON MD Apr 28, 2021 16:38
== END | disposition home or self-care (01) ==
LOC: PNCL 15:24
PROVIDERS: ATTEND Anesthesiology
DX: M51.16 Intervertebral disc disorders with radiculopathy, lumbar region (principal); M48.061 Spinal stenosis, lumbar region without neurogenic claudication; I10 Essential (primary) hypertension; E78.00 Pure hypercholesterolemia, unspecified; J44.9 Chronic obstructive pulmonary disease, unspecified; G47.30 Sleep apnea, unspecified; K21.9 Gastro-esophageal reflux disease without esophagitis; F41.9 Anxiety disorder, unspecified; Z85.828 Personal history of other malignant neoplasm of skin; Z79.899 Other long term (current) drug therapy; Z98.890 Other specified postprocedural states; Z88.0 Allergy status to penicillin; Z88.1 Allergy status to other antibiotic agents; Z88.8 Allergy status to other drugs, medicaments and biological substances; Z87.891 Personal history of nicotine dependence
CPT/HCPCS: 62323; J1100; Q9965